=== PATIENT | female | born 1945 | race Caucasian/White ===

== ENCOUNTER 2019-12-21 01:07 | Outpatient (CLI) | payer MEDICARE, OTHER, SELFPAY ==
[2019-12-21 20:51] LABS: SARS-CoV-2 RNA PCR Negative
== END 2019-12-21 01:08 | disposition home or self-care (01) ==
LOC: ANHCOVIDDT 01:08
PROVIDERS: PCP Family Medicine; Visit Provider Plastic Surgery
DX: Z01.812 Encounter for preprocedural laboratory examination (principal); Z20.828 Contact with and (suspected) exposure to other viral communicable diseases
CPT/HCPCS: 87635; C9803; U0003

== ENCOUNTER 2019-12-23 01:48 | Day surgery (SDC) | payer MEDICARE, OTHER, SELFPAY ==
[2019-12-15 09:38] VITALS: BMI 34.0
[2019-12-23] VITALS (9 sets, daily range): BP systolic 153–224; BP diastolic 77–99; PULSE 63–644; RESP 12–20; TEMP 36.4; O2SAT 94–99
--- NOTE | 2019-12-23 07:13 | WPDHPUPDATE1 ---
History and Physical Update Update Date/Time: 12/23/19 07:13 History and Physical has been reviewed, including an updated exam of the patient. There are NO changes in the patient's condition. Risks, benefits, and alternatives have been discussed and questions answered. Patient agrees to proceed with procedure.
--- NOTE | 2019-12-23 07:14 | WPDHPUPDATE1 ---
History and Physical Update Update Date/Time: 12/23/19 07:14 History and Physical has been reviewed, including an updated exam of the patient. There are NO changes in the patient's condition. Risks, benefits, and alternatives have been discussed and questions answered. Patient agrees to proceed with procedure.
--- NOTE | 2019-12-23 12:23 | PM.OP ---
Procedure Note - Brief Procedure Note - Brief Date of procedure: 12/23/19 Pre-op diagnosis: Squamous Cell CA Right Forehead Post-op diagnosis: same Procedure performed: Excision of SCC of right forehead with FS and intermediate repair 3.0 ncm Anesthesia: local Surgeon: Deandre Ray MD Estimated blood loss (mL): 2 Drains: No Packing: No Pathology: yes Complications: No immediate complications Condition: stable Disposition: same day
[2019-12-23] MEDS: LIDO 1%/EPINEPHRINE 1:100,000 20 ML VIAL INFILTRATE (12:50)
--- NOTE | 2019-12-23 13:15 | PM.PROC ---
Procedure Note - Detailed Date of procedure: 12/23/19 Pre-op diagnosis: Squamous Cell CA Right Forehead Post-op diagnosis: same Procedure performed: 1.2 cm excision squamous cell carcinoma of the right forehead with frozen section and intermediate repair 3 cm Description of procedure: The biopsy site on the right forehead was marked as the patient waited in holding. The site was compared to a drawing. She has no other scars on her forehead. She was taken to the operating room and placed supine the operating table. A time-out was held and confirmed. The patient was prepped and draped in the usual fashion. The site was visualized and marked for the proposed excision. It was infiltrated with 1% lidocaine with epinephrine. The ballooning affect made the tumor margin more evident. The incision was made as marked and dissection was carried to the subcutaneous tissue. A suture was placed at the 12:00 o'clock position which was most superior. The specimen was sent to pathology. The pathologist reports biopsy site only no residual tumor. The wound edges were undermined 5 mm on all sides and the skin was closed with intradermal 4-0 Vicryl in a couple of sites 2 small dog ears were removed and the skin was closed with a running 5 0 nylon tolerated well She is discharged with instructions in wound care and follow-up and no prescriptions Anesthesia: local Surgeon: Deandre Ray MD Estimated blood loss (mL): 2 Drains: No Packing: No Pathology: yes Complications: No immediate complications Condition: stable Disposition: same day
== END 2019-12-23 13:42 | disposition home or self-care (01) ==
PROVIDERS: PCP Family Medicine; Visit Provider Plastic Surgery
PROC: (CPT 11642; principal; 2019-12-23 12:15)
DX: C44.329 Squamous cell carcinoma of skin of other parts of face (principal)
CPT/HCPCS: 11642; 12052; 88305; 88331; A9270

== ENCOUNTER 2020-04-24 09:42 | Emergency (ER) | payer MEDICARE, OTHER, SELFPAY ==
--- NOTE | ~2020-04-24 | NM_ITS ---
EXAMINATION: NM pulmonary perfusion EXAM DATE: 04/24/2020 14:41 INDICATION: chest pain, elevated d dimer TECHNIQUE: A perfusion lung scan was performed. The patient was injected with 5.2 mCi technetium 99 m MAA and imaged. Modified PIOPED 2 criteria used for interpretation of perfusion without ventilation study (recent chest x-ray instead for comparison). Correlation is made to chest x-ray earlier same d ate. FINDINGS: Mildly heterogeneous perfusion without segmental defect. Low probability pulmonary embolism . IMPRESSION: Low probability pulmonary embolism. Reviewed, dictated and finalized at location B. ASSEMBLER KITCHEN
--- NOTE | ~2020-04-24 | CT_ITS ---
EXAMINATION: CT abdomen pelvis wo con EXAM DATE: 04/24/2020 12:40 INDICATION: Right-sided back pain. Chest pain. Elevated d-dimer. TECHNIQUE: Spiral CT of the abdomen and pelvis was performed without contrast. Axial, coronal and sag ittal images were reviewed. The dose-length product (DLP) for this examination was 670.58 mGy-cm. T he exposure was tailored according to patient size (auto mA exposure control), and iterative reconstr uction (ASIR) was used as additional dose reduction technique. There is no prior study for compariso n. FINDINGS: There is no nephrolithiasis or hydronephrosis. The uterus is not identified and has likel y been surgically resected. The bladder is unremarkable. Small amount of right liver lobe scarring i nferiorly, capsular retraction. The liver, spleen, adrenal glands and pancreas are otherwise unremark able. There are cholecystectomy clips. There is no retroperitoneal or pelvic lymphadenopathy. The re is mild to moderate scattered arteriosclerotic disease. The appendix is not positively visualized. There is no pericecal inflammatory change to suggest appe ndicitis. The stomach and small bowel are unremarkable. There is moderate amount of right hemicolo neymar stool and gas. There is mild sigmoid colonic diverticulosis. There is no adjacent inflammatory c hange to suggest diverticulitis. No free intraperitoneal gas. Mild cardiomegaly. Left basilar sub segmental atelectasis and granuloma. 6 mm anterolisthesis L5 on S1 without spondylolysis. Advanced d isc disease L4-5 and L5-S1. There are no osteoblastic or osteolytic lesions identified. IMPRESSION: 1. No nephrolithiasis, hydronephrosis or acute intra-abdominal findings. 2. Moderate right hemicolonic stool. 3. Mild colonic diverticulosis. Reviewed, dictated and finalized at location B. TRICAL TESTER BATTERY
--- NOTE | ~2020-04-24 | XR_ITS ---
EXAMINATION: XR chest 1V portable INDICATION: Back pain TECHNIQUE: Portable AP chest at 1054 hours COMPARISON: None available FINDINGS: There is mild atelectasis of the lung bases. No pleural effusion or pneumothorax is identif ied. The heart size is normal. The visualized osseous structures are unremarkable. IMPRESSION: 1. No acute cardiopulmonary abnormality. Reviewed, dictated and finalized at location A. Y ROLLING MACHINE OPERATOR
[2020-04-24 09:48] VITALS: BP 163/73; PULSE 82; RESP 20; TEMP 36.8; O2SAT 100
[2020-04-24 10:01] LABS: Basophils Percent Auto 0.8 % (0.2-1.2); Eosinophils Absolute Auto 0.1 K/mm3 (0-0.3); Eosinophils Percent Auto 1.4 % (0-4.4); Hemoglobin 12.9 g/dL (12.0-15.0); Immature Granulocyte Absolute 0.01 K/mm3 (0.00-0.031); Immature Granulocyte Percent A 0.2 % (0-0.5); Lymphocytes Absolute Auto 1.15 K/mm3 (0.9-3.2); Lymphocytes Percent Auto 23.2 % (18.3-44.2); Mean Corpuscular HGB Conc 33.1 g/dl (32-36); Mean Corpuscular Hemoglobin 31.5 pg (26-34); Mean Corpuscular Volume 95.4 fl (80-100); Mean Platelet Volume 9.3 fl (7.4-10.4); Monocytes Absolute Auto 0.6 K/mm3 (0.1-0.6); Monocytes Percent Auto 11.7 % (2.6-8.5); Neutrophils Absolute Auto 3.1 K/mm3 (1.3-6.7); Neutrophils Percent Auto 62.7 % (45.5-73.1); Platelet Count Result 279 k/mm3 (150-375); Red Blood Count 4.09 M/mm3 (4.2-5.4); Red Cell Distribution Width 12.6 % (11.5-14.5)
[2020-04-24 10:15] LABS: Anion Gap 6 mmol/L (8-16); Blood Urea Nitrogen 10 mg/dL (7-17); Calcium 9.6 mg/dL (8.4-10.2); Carbon Dioxide 30 mmol/L (22-30); Chloride 94 mmol/L (98-107); Estimated CRCL calculation 48 ml/min; Estimated Glomerular Filt Rate > 60; Glucose 100 mg/dL (65-105); Potassium 3.7 mmol/L (3.4-5.0); Sodium 130 mmol/L (137-145)
[2020-04-24 10:22] LABS: Add Urine Microscopic? YES; Appearance Urine Clear (Clear); Bacteria Urine Trace /hpf; Bilirubin Urine Negative (Negative); Blood Urine Negative (Negative); Color Urine Amber (Yellow); Glucose Urine UA Negative (Negative); Hyaline Casts Urine 30-49 /lpf; Ketones Urine Trace mg/dL (Negative); Leukocyte Esterase Ur Negative LEU/UL (Negative); Mucus Urine Heavy /lpf; Nitrate Urine Negative (Negative); Protein Urine 1+ mg/dL (Negative); RBC Urine 0-2 /hpf (0-2); Specific Grav Ur 1.024 (1.001-1.035); Squamous Epithelial Cell Urine Rare /hpf (Few); WBC Urine 0-3 /hpf
--- NOTE | 2020-04-24 10:37 | ECG_ITS ---
Measurements Intervals Fluker Rate: 77 P: 54 ND: 164 QRS: 20 QRSD: 102 T: 42 QT: 404 QTc: 459 Interpretive Statements SINUS RHYTHM ATRIAL PREMATURE COMPLEX INCOMPLETE RIGHT BUNDLE BRANCH BLOCK BORDERLINE T WAVE ABNORMALITY- ANTERIOR LEADS BASELINE ARTIFACT- V4, V6 BORDERLINE ECG Electronically Signed On 04-24-2020 10:59:27 RELAY SHOP TESTER by Arash Paula D.O.
--- NOTE | 2020-04-24 10:45 | PC.NURSE ---
Called chem, added on Trop Baseline, TSH, and D dimer 9902
[2020-04-24 11:28] LABS: Troponin I < 0.012 ng/mL (0.000-0.034)
--- NOTE | 2020-04-24 11:30 | ED.GENADULT ---
HPI - General Adult General Chief complaint: Back Pain/Injury Stated complaint: Possible Kidney stone/ sent by PCP Time Seen by Provider: 04/24/20 10:23 Source: patient History of Present Illness HPI narrative: Patient is a 74 y/o female complaining of right back pain starting 4 days ago. She describes her pain as poking and rates it as 10/10. She states that she was seen 2 days ago by her doctor and found to have blood in urine and thought to be have a possible kidney stone. She was given Flomax. No imaging was done. She states that Flomax is not helping with her back pain. She also started to have left sided chest pain starting yesterday. Related Data Home Medications Medication Instructions Recorded Confirmed aspirin 325 mg PO DAILY 12/15/19 12/23/19 carvedilol [Coreg] 3.125 mg PO BID 12/15/19 12/23/19 duloxetine 30 mg PO QAM 12/15/19 12/23/19 levothyroxine 88 mcg PO QAM 12/15/19 12/23/19 lorazepam 1 mg PO HS 12/15/19 12/23/19 multivitamin [Multiple Vitamins] 1 tablet PO DAILY 12/15/19 12/23/19 omega 8-sbd-dvk-fish oil [Fish Oil] 1 cap PO DAILY 12/15/19 12/23/19 omeprazole 20 mg PO DAILY 12/15/19 12/23/19 rizatriptan [Maxalt] 10 mg PO ONCE PRN 12/15/19 12/15/19 Allergies Allergy/AdvReac Type Severity Reaction Status Date / Time iohexol Allergy Anaphylaxis Verified 04/24/20 12:55 [From contrast - CT, X-RAY] chicken derived AdvReac Intermediate VOMITING/CABALLERO Verified 12/23/19 11:08 codeine AdvReac Mild Headache Verified 12/23/19 11:08 midazolam AdvReac Mild Headache Verified 12/23/19 11:08 prochlorperazine AdvReac Mild Jittery Verified 12/23/19 11:08 thyme AdvReac Mild Headache Verified 12/23/19 11:08 Review of Systems Constitutional: Constitutional: Denies chills, Denies fever(s), Denies headache(s) and Denies weakness Eyes: Eyes: Denies blurry vision ENT: Denies headache(s) and Denies neck pain Cardiovascular: Cardiovascular: Reports chest pain and Denies dyspnea Respiratory: Respiratory: Denies cough and Denies dyspnea Gastrointestinal: Gastrointestinal: Denies abdominal pain, Denies diarrhea, Denies nausea and Denies vomiting Genitourinary: Genitourinary: Denies hematuria and Denies dysuria Musculoskeletal: Musculoskeletal: Reports back pain and Denies neck pain Neurologic: Denies headache(s) and Denies weakness [facility] Social History Social History Smoking status: Never smoker Alcohol intake: current Drinks per week: 4 Substance use: never Gender identity (if verbalized by the patient): Female Spiritual care concerns: No Exam Const: General: no acute distress and well developed Orientation/consciousness: oriented to person, oriented to place, oriented to time and patient oriented x3 HENMT: Head: normocephalic Ears: external ears normal General nose exam: Normal external nose present Eyes: General: appearance normal, both eyes and all related structures Conjunctivae: conjunctivae normal Neck: Neck: normal visual inspection and full ROM Chest: Chest palpation & inspection: normal inspection of the chest and no tenderness Resp: Effort & Inspection: normal respiratory effort Auscultation: clear to auscultation bilaterally Cardio: Rate: regular rate Rhythm: regular rhythm GI: GI Palp: No abdominal tenderness and Yes Soft to palpation Skin: General skin exam: normal color and turgor normal Neuro: General: oriented to person, oriented to place, oriented to time and patient oriented x3 Cognition (Neuro): normal cognition Extrem: General: normal to inspection, full ROM and no pedal edema Psych: Appearance: grossly normal Mental Status: mental status grossly normal Affect: normal affect Course Vital Signs Vital signs: Vital Signs Temperature 36.8 C 04/24/20 09:48 Pulse Rate 82 04/24/20 09:48 Respiratory Rate 20 04/24/20 09:48 Blood Pressure 163/73 H 04/24/20 09:48 Pulse Oximetry 100 04/24/20 09:48
--- NOTE | 2020-04-24 11:30 | PC.NURSE ---
CALLED LAB. NOTIFIED OF ADD ON D-DIMER
[2020-04-24 11:51] LABS: D Dimer 0.61 ug/mL (<0.48)
[2020-04-24 12:49] VITALS: BP 152/87; PULSE 80; RESP 20; O2SAT 100
[2020-04-24] MEDS: KETOROLAC 15 MG/ML VIAL (*BKC) IV PUSH (13:11)
[2020-04-24 13:48] LABS: Troponin I < 0.012 ng/mL (0.000-0.034)
[2020-04-24 14:00] VITALS: BP 156/80; PULSE 78; RESP 20; O2SAT 97
[2020-04-24] MEDS: CYCLOBENZAPRINE HCL 10 MG TABLET PO (15:07)
[2020-04-24 16:55] VITALS: BP 132/68; PULSE 80; RESP 18; O2SAT 99
== END 2020-04-24 16:57 | disposition home or self-care (01) ==
PROVIDERS: Emergency Provider Emergency Medicine; PCP Family Medicine
DX: M54.5 Low back pain (principal); R07.9 Chest pain, unspecified; Z79.82 Long term (current) use of aspirin; Z79.899 Other long term (current) drug therapy; I49.1 Atrial premature depolarization; I45.10 Unspecified right bundle-branch block; R94.31 Abnormal electrocardiogram [ECG] [EKG]
CPT/HCPCS: 36415; 71045; 74176; 78580; 80048; 81001; 84443; 84484; 85025; 85380; 93005; 96374; 99284; A9270; A9540; J1885

== ENCOUNTER → 2023-06-16 12:02 | Outpatient (REF) | payer MEDICARE, OTHER, SELFPAY | LOC: ANHLAB 12:02 | PROVIDERS: PCP Family Medicine; Visit Provider Physician Assistant Surgical | DX: C44.622 Squamous cell carcinoma of skin of right upper limb, including shoulder (principal) | CPT/HCPCS: 88305 ==

== ENCOUNTER → 2024-07-20 14:38 | Outpatient (REF) | payer MEDICARE, OTHER, SELFPAY ==
--- NOTE | 2024-07-20 14:38 | S_PTH ---
PATIENT: Porsha Bean LOC: [facility] U#:[id number] AGE/SX: 79/F ROOM: RE07/20/[address]: Nazanin Perez PA-C : 1945 BED: DIS: SPEC #: [id number] RECD: 07/21/24 06:57 STATUS: NIA SERRATO #: [id number] ELBERT: 07/20/24 14:[address]: Nazanin Perez DEPT: [facility] Surgical RECD BY: Radha Vick ENTERED: 07/21/24 06:57 SP TYPE: Surgical OTHR DR: Aliza Aviles MD Tissues: A - Skin Procedures: Hematoxylin and Eosin Stain Gross and Microscopic Level 4
--- OUTSIDE RECORDS SUMMARY | 2024-07-20 14:41 | XMS_ITS | Encounter Summary ---
Author Organization [facility] Address [address] [place] [address] Phone Care Team Providers Care Religious Education Director Name Role Phone Aliza Aviles MD Primary Care Provider Referral, Self Unavailable Unavailable William Naranjo MD Unavailable [phone] Encounter Details Date Type Department Care Team (Late st Contact Info) Description 06/28/2024 Results Follow-Up [facility] [address] 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 I also want to take a look at the esophagram if she can bring the images at the time of her Upper endoscopy. Thanks, C documented in this encounter Plan of Treatment Not on file documented as of this encounter Visit Diagnoses Not on filedocumented in this encounter Care Teams Religious Education Director Relationship Specialty Start Date End Date Aliza Aviles MD [address] [place] [address] PCP - General Family Medicine 05/22/20 Referral, Self 05/22/20 William Naranjo MD Consulting Physician Medical Oncology 05/22/20 documented as of this encounter
--- OUTSIDE RECORDS SUMMARY | 2024-07-20 14:41 | XMS_ITS | Encounter Summary ---
Author Organization [facility] Address [address] [place] [address] Phone Care Team Providers Care Oriental Rug Stretcher Name Role Phone Aliza Aviles MD Primary Care Provider Referral, Self Unavailable Unavailable William Naranjo MD Unavailable [phone] Encounter Details Date Type Department Care Team (Late st Contact Info) Description 12/31/2023 Orders Only [facility] Scanning, Provider Social History Tobacco Use Types Packs/Day Years Used Date Smoking Tobacco: Never Smokeless Tobacco: Never Comments Unknown Sex and Gender Information Value Date Recorded Sex Assigned at Not on file Legal Sex Female 10:34 PM AIR MARSHAL Gender Identity Not on file Sexual Orientation Not on file documented as of this encounter Plan of Treatment Not on file documented as of this encounter Procedures Procedure Name Priority Date/Time Associated Diagnosis Comments GI - RESULT 12/31/2023 documented in this encounter Results * GI - RESULT (12/31/2023) Anatomical Region Laterality Modality Other us Provider Scanning Final Result documented in this encounter Visit Diagnoses Not on filedocumented in this encounter Care Teams Oriental Rug Stretcher Relationship Specialty Start Date End Date Aliza Aviles MD [address] [place], [place] [id number] PCP - General Family Medicine 05/22/20 Referral, Self 05/22/20 William Naranjo MD Consulting Physician Medical Oncology 05/22/20 documented as of this encounter
--- OUTSIDE RECORDS SUMMARY | 2024-07-20 14:41 | XMS_ITS | Clinical Summary ---
Author Organization [facility] [place] Address [address] [place] [address] Phone Care Team Providers Care Gore Cutter Name Role Phone Aliza Aviles MD Primary Care Provider Allergies Active Allergy Reactions Criticality Noted Date Comments Codeine Headache Low 06/02/2009 Epinephrine Rash,Nausea and Vomiting Low 06/02/2009 Hydralazine Other (See Comments) 06/15/2013 hyperness Hydromorphone (Bulk) Nausea and Vomiting Low 2011 Loperamide Itching Low 06/02/2009 Midazolam Rash,Nausea and Vomiting Low 06/02/2009 Morphine Other (See Comments) 06/15/2013 hyperness Nebivolol Nausea and Vomiting Low 06/02/2009 Nitroglycerin Other (See Comments) 10/06/2012 unknown Ondansetron Hives,Other (See Comments) High 02/20/2023 Swelling and redness Prochlorperazine Nausea and Vomiting,Other (See Comments) Low 06/02/2009 Promethazine Other (See Comments) 10/02/2011 Makes her nervous Unclassified Drug Itching Low 06/02/2009 Medications RIZATRIPTAN BENZOATE (MAXALT ORAL) Take by mouth. prn. Active multivitamin (DAILY-JUDY) Oral tablet Take 1 Tab by mouth daily. Active OMEGA-3 FATTY ACIDS (FISH OIL ORAL) Take 1,200 mg by mouth. Active omeprazole (PRILOSEC) 20 mg Capsule, Delayed Release(E.C.) Take 20 mg by mouth daily. Active levothyroxine 100 mcg tabletIndicatio ns:Encounter for screening mammogram for high-risk patient Take 100 mcg by mouth daily diamond assorter. Active LORazepam (ATIVAN) 1 mg tabletIndicatio ns:Encounter for screening mammogram for high-risk patient Take 1 mg by mouth every 6 hours as needed for Anxiety. Active DULoxetine 30 mg capsule,delayed release Take 30 mg by mouth daily. Active spironolactone (ALDACTONE) 25 mg tablet Take 12.5 mg by mouth daily. 07/31/2020 Active losartan 25 mg tablet Take 25 mg by mouth daily. 03/24/2020 Active carvediloL (COREG) 3.125 mg tablet Take 3.125 mg by mouth 2 times daily. 09/01/2020 Active topiramate (TOPAMAX) 25 mg tablet Take 25 mg by mouth 2 times daily. 10/03/2020 Active LORazepam (ATIVAN) 1 mg tablet Take 1 mg by mouth. Active rizatriptan (MAXALT) 10 mg Tablet Take by mouth. Active levothyroxine 88 mcg tablet Take 88 mcg by mouth daily. 04/22/2020 Active oxyCODONE-aceta minophen (PERCOCET) 5-325 mg tablet TAKE 1 TABLET BY MOUTH 3 TIMES A DAY NEEDED FOR PAIN 10/05/2020 Active furosemide (LASIX) 20 mg tablet TAKE 1 BY MOUTH DAILY MAY TAKE ADDITION 20MG TAB IF WEIGHT UP 3# 01/22/2022 Active Xarelto 15 mg Tablet TAKE 1 TABLET BY MOUTH EVERY DAY WITH SUPPER 02/20/2022 Active topiramate (TOPAMAX) 25 mg tablet Take 25 mg by mouth 2 times daily as needed. Active Zetia 10 mg tablet 1 Oral every day; Duration: 0 10/17/2022 Active rizatriptan (Maxalt) 10 mg Tablet 1 tablet Orally Once a day As needed 1 tablet once, may repeat at 2 hour intervals. 03/16/2024 Active Active Problems Patient Care Coordination No te Formatting of this note migh t be different from the original. Primary Care: Cj Armstrong MD Referring Provider: Cj Armstrong MD [address] [place] [address] [place] [address] Other: Problem Noted Date Diagnosed Date Breast lump 03/31/2017 Encounter for screening mammogram for high-risk patient 06/06/2015 Tachycardia 10/06/2012 HTN (hypertension) 06/08/2010 Diffuse cystic mastopathy 06/08/2010 Family history of breast cancer in mother 2009 Overview (06/02/2009): Elvira 3% and 11.7% Assessment & Plan (06/02/2009 2:28 PM CDT): Saw once 2 yrs ago for obesity. [place] Stopped estrogen 2 years ago Mammiogram today negtative extremely tender right breast -- primrose oil Discussed Evista since Mom had breast cancer at 70y- she doesn't want it Depression 06/02/2009 Unspecified hypothyroidism 06/02/2009 GERD (gastroesophageal reflux disease) Arthritis Migraines Obesity Hypercholesteremia S/P VISH (total abdominal hysterectomy) Celiac disease Rheumatoid arthritis(714.0) Resolved Problems Problem Noted Date Diagnosed Date Resolved Date HTN (hypertension) 3 Thyroid disease 06/02/2009 Psychiatric disorder 010 Overview (06/02/2009): depression Encounters Date Type Department Care Team Description 05/05/2024 External Device Data ST[facility] ABSTRACTION Provider, Abstract 04/24/2024 External Device Data [facility] ABSTRACTION Provider, Abstract 04/23/2024 External Device Data [facility] ABSTRACTION Provider, Abstract from Last 3 Months Family History Medical History Relation Name Comments Cancer Brother kidney Breast Cancer Mother dx age 70 Ovarian Cancer Neg Hx Relation Name Status Comments Brother Alive Mother Social History Tobacco Use Types Packs/Day Years Used Date Smoking Tobacco: Never Smokeless Tobacco: Never Tobacco Cessation:Counseling Given: Not Answered Alcohol Use Standard Drinks/Week Comments Yes 0 (1 standard drink = 0.6 oz pur e alcohol) Feeling Safe Answer Date Recorded Fear of Current or Ex-Partner Not on file Emotionally Abused Not on file 03/26/2023 Within the last year, have y ou been kicked, hit, slapped, or otherwise physically hurt by your partner or ex-partner? No 03/26/2023 Sexually Abused Not on file 03/26/2023 Feeling Safe Answer Date Recorded Do you worry about feeling s afe and happy with the people in your life? 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 Not on file Not on file Not on file Not on file Not on file Not on file Not on file Last Filed Vital Signs Vital Sign Reading Time Taken Comments Blood Pressure 128/84 04/02/2024 12:54 PM DISPLAY MAKER Pulse 87 03/08/2022 11:31 AM DISPLAY MAKER Temperature 36.5 C (97.7 F) 09/01/2019 11:48 AM CDT Respiratory Rate 14 06/02/2009 1:43 PM CDT Oxygen Saturation 96% 03/08/2022 11:31 AM DISPLAY MAKER Inhaled Oxygen Concentration - - Weight 70.8 kg (156 lb) 04/02/2024 12:54 PM DISPLAY MAKER Height 152.4 cm (5') 04/02/2024 12:54 PM DISPLAY MAKER Body Mass Index 30.47 04/02/2024 12:54 PM DISPLAY MAKER Plan of Treatment Upcoming Encounters Date Type Department Care Team (Late st Contact Info) Description 04/04/2025 12:00 PM DISPLAY MAKER Appointment [facility] [address] [place] [address] Svetlana Kaur, GERONIMO [address] [place] [address] 04/04/2025 12:45 PM DISPLAY MAKER Office Visit [facility] [address] [place] [place] [address] Svetlana Kaur, CALL CENTER TEAM LEADER [id number] [facility] [address] [place] [address] Health Maintenance Due Date Last Done Comments DTAP/TDAP/TD VACCINES (1 - Tdap) 08/19/1962 RSV VACCINE (60+ or ) (1 - 1-dose 75+ series) 08/19/2018 INFLUENZA VACCINE (#1) 2023 0, 12/11/2018, 12/15/2017, Additional history exists COVID-19 Vaccine (2023-2 5 season) 2023 04/11/2020, 03/14/2020 OSTEOPOROSIS SCREENING 08/30/2027 , 08/29/2022, 01/05/2018, Additional history exists PNEUMOCOCCAL VACCINE 50+ YEARS Completed 01/01/2016 , 12/25/2012 ZOSTER VACCINE Completed 08/18/2018, 04/18, 02/18/2008 Insurance [facility] MEDICARE RAILROAD Care Teams Gore Cutter Relationship Specialty Start Date End Date Aliza Aviles MD [address] [place] [address] PCP - General Family Practice 08/05/18
--- OUTSIDE RECORDS SUMMARY | 2024-07-20 14:41 | XMS_ITS | Referral Summary ---
Author Organization [facility] Address [address] [place] [address] Care Team Providers Care Oversize Load Pilot Escort Name Role Phone Aliza Aviles MD Primary Care Provider Referral, Self Unavailable Unavailable William Naranjo MD Unavailable [phone] Encounters Date Type Department Care Team Description 07/09/2024 Results Follow-Up [facility] [address] [facility] 12th [place] [address] [place] [address] Yolette Jenkins MD Surgical pathology 07/08/2024 9:04 AM CDT Anesthesia Event [facility] [address] [place] [phone] Deandre Pat MD 07/08/2024 9:00 AM CDT - 07/08/2024 9:30 AM CDT Surgery [facility] [address] [place] [phone] Yolette Jenkins MD ESOPHAGOGASTRODUODENOSCOPY ESOPHAGEAL GUIDE WIRE 07/08/2024 7:37 AM CDT - 07/08/2024 10:24 AM CDT Hospital Encounter [facility] [address] [place] [phone] Yolette Jenkins MD Gastroesophageal reflux disease, unspecified whether esophagitis present; Celiac disease Discharge Disposition: Discharge to home or self care 07/01/2024 Telephone [facility] [address] [facility] 12th [place] [address] [place] [address] Rupal Henderson LPN 07/01/2024 8:14 AM CDT - 07/01/2024 11:59 PM CDT Hospital Encounter [facility] ([facility]) [address] [place] [address] Discharge Disposition: Discharge to home or self care 07/01/2024 8:13 AM CDT - 07/01/2024 11:59 PM CDT Hospital Encounter [facility] ([facility]) [address] [place] [address] Discharge Disposition: Discharge to home or self care 07/01/2024 8:11 AM CDT - 07/01/2024 11:59 PM CDT Hospital Encounter [facility] ([facility]) [address] [place] [address] Discharge Disposition: Discharge to home or self care 06/30/2024 Telephone [facility] [address] [facility] [address]th [place] [address] [place] [address] Rupal Henderson LPN Cardiac Clearance + Xarelto Hold 06/28/2024 Results Follow-Up [facility] [address] [facility] [address]th [place] [address] [place] [address] Yolette Jenkins MD High Resolution Esophageal Manometric Study - 06/21/2024 1:20 PM CDT - 06/21/2024 11:59 PM CDT Hospital Encounter [facility] [address] [place] [phone] Esophageal dysmotility; Esophageal dysphagia Discharge Disposition: Discharge to home or self care 06/17/2024 Telephone [facility] [address] [place] [phone] Rae Gilmore RN 06/17/2024 Telephone [facility] [address] [place] [phone] Rae Gilmore RN 06/17/2024 Orders Only [facility] [address] [place] [address] Medical [address] [place] [phone] Yazmin Martínez LPN Esophageal dysmotility (Primary Dx); Esophageal dysphagia 06/09/2024 Telephone [facility] [address] [place] [address] Medical [address] [place] [phone] Yazmin Martínez LPN Esophageal Manometry 06/09/2024 Orders Only [facility] [address] [place] [address] Medical [address] [place] [address] Yazmin Martínez LPN Esophageal dysmotility (Primary Dx); Esophageal dysphagia; Esophageal diverticulum 06/02/2024 1:15 PM CDT Office Visit [facility] [address] [facility] [address] [place] [address] [place] [address] Yolette Jenkins MD Esophageal dysmotility (Primary Dx); Esophageal dysphagia; Esophageal diverticulum from Last 3 Months Allergies Active Allergy Reactions Criticality Noted Date Comments Atorvastatin Headache Low 11/30/2015 Chicken Headache Low 05/25/2020 Codeine Iodinated Contrast Media Shortness of breath,Itching High 07/18/2014 Noted at [facility] Epinephrine Flecainide Other (See comments) Low 09/29/2017 hypertension Hydralazine Other (See comments) Low 06/15/2013 hyperness hypertension Hydromorphone Loperamide Rash Medium 05/25/2020 Reaction: Rash, Iodine Itching Low 11/30/2015 Metoclopramide Other (See comments) Low 11/30/2015 hypertension Midazolam Monosodium Glutamate Headache Low 11/30/2015 Morphine Other (See comments),Unknown Low 06/15/2013 hyperness Hypertension/inso mnia Nebivolol Headache Low 05/25/2020 Nitroglycerin Headache Low 05/25/2020 Prochlorperazine Promethazine Sulfa (Sulfonamide Antibiotics) Rash Medium 11/30/2015 Thyme Headache Low 11/30/2015 Medications multivitamin-Ca -iron-minerals tabletIndicatio ns:Hip pain, chronic, right Take 1 tablet by mouth daily 08/05/2013 Active rizatriptan (Maxalt) 10 mg tabletIndicatio ns:Hip pain, chronic, right Take by mouth as needed Active DULoxetine DR (CYMBALTA) 30 mg capsuleIndicati ons:Hip pain, chronic, right Take 30 mg by mouth daily 11/13/2017 Active levothyroxine (SYNTHROID) 88 mcg tabletIndicatio ns:Hip pain, chronic, right Take 1 tablet (88 mcg total) by mouth daily 04/22/2020 Active LORazepam (ATIVAN) 1 mg tabletIndicatio ns:Hip pain, chronic, right TAKE 1/2 TO 1 TABLET BY MOUTH AT BEDTIME NEEDED 05/19/2020 Active omeprazole (PriLOSEC) 20 mg capsuleIndicati ons:Hip pain, chronic, right Take 1 capsule (20 mg total) by mouth daily Active topiramate (TOPAMAX) 25 mg tablet Take 1 tablet (25 mg total) by mouth 2 (two) times a day 10/03/2020 Active Zetia 10 mg tablet Take 1 tablet (10 mg total) by mouth daily 10/17/2022 Active potassium chloride ER 10 mEq CR tablet Take 2 tablet/capsu le (20 mEq total) by mouth 2 (two) times a day 04/12/2024 Active Xarelto 15 mg tablet Take 1 tablet (15 mg total) by mouth every evening Active torsemide (DEMADEX) 20 mg tablet Take 1 tablet (20 mg total) by mouth daily 12/15/[address] (CYMBALTA) 60 mg capsule Take 1 capsule (60 mg total) by mouth daily 04/12/2024 Active fluconazole (DIFLUCAN) 200 mg tablet Take 1 tablet (200 mg total) by mouth daily for 21 days 21 tablet 07/09/2024 5 Active Active Problems Problem Noted Date Diagnosed Date Dyslipidemia 10/17/2020 GERD (gastroesophageal reflux disease) Hypercholesteremia 10/17/2020 SOB (shortness of breath) 10/17/2020 Hip pain, chronic, right 05/26/2020 Localized edema 07/05/2019 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 0 07/18/2017 Arthritis 07/17/2017 Rheumatoid arthritis 07/17/2017 Celiac disease 07/17/2017 Migraines 07/17/2017 Obesity 07/17/2017 S/P VISH (total abdominal hysterectomy) 8 Breast lump 03/31/2017 Ascending aortic aneurysm 12/04/2015 Near syncope 12/04/2015 HLD (hyperlipidemia) 12/04/2015 Nonrheumatic aortic valve insufficiency 12/04/19 16 PAF (paroxysmal atrial fibrillation) 12/04/2015 Overview (10/17/2020): S/p pulmonary vein ablation Encounter for screening mammogram for high-risk patient 06/06/2015 Cardiac arrhythmia 11/17/2014 Overview (10/17/2020): Date Onset: 11/17/2014 Postherpetic trigeminal neuralgia 04/05/2014 CAD (coronary artery disease) 12/16/2013 Overview (10/17/2020): Date Onset: 12/16/2013 Date Onset: 11/17/2014 Insomnia 12/16/2013 Overview (10/17/2020): Date Onset: 12/16/2013 Arthralgia of hand 04/05/2013 Tachycardia 10/06/2012 Arthralgia of wrist 01/24/2012 Postmenopausal atrophic vaginitis 06/20/2010 Anxiety disorder 06/19/2010 Overview (10/17/2020): Date Onset: 11/17/2014 Intractable migraine without aura 06/19/2010 Diffuse cystic mastopathy 06/08/2010 HTN (hypertension) 06/08/2010 Depression 06/02/2009 Family history of breast cancer in mother 2009 Overview (10/17/2020): Elvira 3% and 11.7% Last Assessment & Plan: Saw once 2 yrs ago for obesity. [place] Stopped estrogen 2 years ago Mammiogram today negtative extremely tender right breast -- primrose oil Discussed Evista since Mom had breast cancer at 70y- she doesn't want it Overview: Elvira 3% and 11.7% Last Assessment & Plan: Saw once 2 yrs ago for obesity. [place] [address] Stopped estrogen 2 years ago Mammiogram today negtative extremely tender right breast -- primrose oil Discussed Evista since Mom had breast cancer at 70y- she doesn't want it Hypothyroidism 06/02/2009 Immunizations Immunization Administration Dates Next Due Influenza, Quadrivalent, Hig h Dose, Preservative Free, Intrr 12/14/2019 Influenza, Trivalent, High D ose, Split, Preservative Free, Intramuscular 12/11/2018,12/15/2017,12/25/2016,12/31 Moderna SARS-CoV-2 Monovalen t Vaccination (12+ YRS) 04/11/2020,03/14/2020 Pneumococcal Conjugate PCV 13 01/01/2016 Pneumococcal Polysaccharide PPV23 12/25/2012 ZOSTER LIVE 02/18/2008 ZOSTER Recombinant 08/18/2018,05/14/2018 Social History Tobacco Use Types Packs/Day Years Used Date Smoking Tobacco: Never Smokeless Tobacco: Never Tobacco Cessation:Counseling Given: Not Answered AUDIT-C Answer Date Recorded Q1: How often do you have a drink containing alc ohol? Monthly or less 07/08/2024 Q2: How many drinks containi ng alcohol do you have on a typical day when you are drinking? 1 or 2 07/08/2024 Q3: How often do you have si x or more drinks on one occasion? Never 07/08/2024 Personal Safety Answer Date Recorded Have you ever been in or are you currently in a harmful physical or emotional relationship or is someone making you feel afraid or unsafe? 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[employer] Gender Identity Not on file Sexual Orientation Not on file Last Filed Vital Signs Vital Sign Reading Time Taken Comments Blood Pressure 168/87 07/08/2024 10:00 AM CDT Pulse 56 07/08/2024 10:00 AM CDT Temperature 36.7 C (98 F) 07/08/2024 8:16 AM CDT Respiratory Rate 24 07/08/2024 10:00 AM CDT Oxygen Saturation 100% 07/08/2024 10:00 AM CDT Inhaled Oxygen Concentration - - Weight 71.2 kg (157 lb) 07/08/2024 8:16 AM CDT Height 147.3 cm (4' 10) 07/08/2024 8:16 AM CDT Body Mass Index 32.81 07/08/2024 8:16 AM CDT Plan of Treatment Not on file Medical Devices Implanted Type Area Supervisor Extrusion Device Identifier Shelf Expiration Date Model / Serial / Lot Pacemaker Micra Pacemaker Chest Wall [employer] [id number] / / Procedures Procedure Name Priority Date/Time Associated Diagnosis Comments SURGICAL PATHOLOGY Routine 07/08/2024 9:13 AM CDT Gastroesophageal reflux disease, unspecified whether esophagitis present Celiac disease ENDO ADD ON ESOPHAGOGASTRODUODENOSCOPY BIOPSY 07/08/2024 9:05 AM CDT Gastroesophageal reflux disease, unspecified whether esophagitis present Celiac disease ESOPHAGOGASTRODUODENOSCOPY ESOPHAGEAL GUIDE WIRE 07/08/2024 9:05 AM CDT Gastroesophageal reflux disease, unspecified whether esophagitis present Celiac disease EGD 07/08/2024 7:50 AM CDT XR TRANSFER OF OUTSIDE FILMS Routine 8:14 AM CDT XR TRANSFER OF OUTSIDE FILMS Routine 8:13 AM CDT XR TRANSFER OF OUTSIDE FILMS Routine 8:11 AM CDT HIGH RESOLUTION ESOPHAGEAL MANOMETRIC STUDY Routine 06/28/2024 6:56 AM CDT Esophageal dysmotility Esophageal dysphagia from Last 3 Months Results * Surgical pathology (07/08/2024 9:13 AM CDT) Tissue (Gastric/Stomach biopsy) 07/08/2024 9:13 AM CDT Tissue specimen (specimen) (Gastric/Stomach biopsy) 07/08/2024 9:15 AM CDT Tissue specimen (specimen) (Esophageal biopsy) 07/08/2024 9:18 AM CDT Narrative PATHOLOGY [facility] - 07/09/2024 1:29 PM CDT [address] [address] Tele: Charisma Painting MD - Shop Coordinator Note to Patients: This report may contain a detailed description of human tissue sent by a health care provider to the laboratory for pathologic evaluation. The content of this report is essential for diagnosis and may provide important critical findings. This information may be unfamiliar to patients to review without a medical professional present. It is advised that the patient review this report in the presence of a health care provider who can answer questions and explain the details. SURGICAL PATHOLOGY REPORT Patient Name: JULIANNE GILBERT Address: [address] [place] [address] Gender: F : 1945 (Age: 78) Service: Gastro Location: [facility], Hospital #: [id number] Patient Type[place] [facility] [place] Taken: 07/08/2024 Received 07/08/2024 Reported: 07/09/2024 Physician(s): Reymundo Herron M.D. DIAGNOSIS: Stomach, polyp biopsy: - Fundic gland polyps and hyperplastic polyp; negative for dysplasia or malignancy - Chronic inflammation, mild - No Helicobacter pylori detected Stomach, mucosal biopsy: - Chronic gastritis, mild - No Helicobacter pylori detected - Negative for intestinal metaplasia or malignancy Tissue submitted as white plaque esophageal biopsy rule out Pascale: - Pascale esophagitis [facility]/07/09/2024 13:29 Examining Pathologist: Alex Barraza M.D. Report Reviewed and Electronically Signed By Alex Barraza M.D. SPECIMEN TYPE: A: GASTRIC POLYP BX B: GASTRIC BX C: WHITE PLAQUE ESOPHAGEAL BX R/O PASCALE CLINICAL IMPRESSION AND HISTORY: Dysphagia, abnormal upper GI series, chronic cough. Findings include esophageal plaques suspicious for candidiasis, benign-appearing esophageal stenosis, multiple gastric polyps, erythematous mucosa in the stomach, normal examined duodenum. GROSS DESCRIPTION: The tissue is received in three containers of formalin all labeled with the patient's name JULIANNE GILBERT. A. The first container is additionally labeled gastric polyp biopsy and contains two tissue fragments measuring 0.6 x 0.2 x 0.1 cm in aggregate. Due to the color and size of the specimen, eosin is used. The specimen is filtered and submitted entirely in cassette A1. B. The second container is additionally labeled gastric biopsy and contains multiple tissue fragments measuring 1.1 x 0.2 x 0.1 cm in aggregate. Due to the color and size of the specimen, eosin is used. The specimen is filtered and submitted entirely in cassette B1. C. The third container is additionally labeled white plaque esophageal biopsy rule out Pascale and contains a 0.6 x 0.3 x 0.1 cm tissue fragment. Due to the color and size of the specimen, eosin is used. The specimen is filtered and submitted entirely in cassette C1. [facility]/07/08/2024 13:08 ,[place] MICROSCOPIC DESCRIPTION: Sections of the gastric polyp biopsy show polypoid gastric mucosal fragments with fundic gland polyp type features. There is increased chronic inflammation some areas of lamina propria. No intestinal metaplasia, dysplasia, or malignant features are evident. A few potential bacteria seen along the mucosal surface therefore an H pylori IHC stain is performed; it is negative with good control. One fragment has more hyperplastic features. Sections of the gastric biopsy fragments of gastric mucosa with areas of mild increased chronic inflammatory cells in the lamina propria. No intestinal metaplasia or malignant features are evident. There is some mild foveolar hyperplasia. A few potential bacteria seen therefore an H pylori IHC stain is performed; it is negative with good control. Sections of the white plaque esophageal biopsy rule out Pascale show squamous mucosa with areas of mild elongation of vascular papillae and mildly increased intraepithelial lymphocytes. There is some separation of surface squamous epithelial cells. To evaluate for subtle fungal forms a GMS stain is performed and shows a few superficial infiltrative fungal forms. Clerical Data Follows A; 00539, 48402 B; 33177, 68002 C; 05617, 02469 REPORT IMAGES AND/OR SCANNED DOCUMENTS ONLY VIEWABLE IN PDF FORMAT The immunohistochemical test(s) cited in this report, if any, was developed and its performance characteristics determined by [facility]. It has not been cleared or approved by the U.S. Food and Drug Administration. The FDA has determined that such clearance or approval is not necessary. This test is used for clinical purposes. It should not be regarded as investigational or for research. [facility] is certified under the Clinical Laboratory Improvement Amendments of 1988 (CLIA) as qualified to perform high complexity testing. Immunostains were performed on formalin-fixed paraffin embedded tissue using a polymer diaminobenzidine chromogen detection system. Antibodies used may include clone SP1 (rabbit monoclonal, estrogen receptor), clone 1E2 (rabbit monoclonal progesterone receptor), Ki-67 (rabbit monoclonal, 30-9), CD117 (rabbit polyclonal, c-kit), and anti-Her-2/keisha (4B5) (rabbit monoclonal primary antibody). In the event that immunohistochemistry or special stains have been performed, attending physician has confirmed appropriateness of controls. Frozen section, operating room consultation, gross examination and dissection, and case sign out may have been performed in part or completely in the following laboratories: [facility], [address] [place] [address], [address] [place] [address]. Yolette Jenkins MD LAB PATHOLOGY ORDERABLES Final Result PATHOLOGY [facility] Laboratory Receiving [address] [place] [address] * EGD (07/08/2024 7:50 AM CDT) Anatomical Region Laterality Modality Other Narrative Procedure Note Yolette Jenkins MD - 07/08/2024 7:50 AM CDT ENDOSCOPY LAB Patient Name: Julianne Gilbert Procedure Date: 07/08/2024 7:50 AM Admit Type: Outpatient Room: [facility] Date of : 1945 Instrument Name: [id number] Gender: Female Note Status: Finalized Procedure: Upper GI endoscopy Indications: Dysphagia, Abnormal UGI series, Chronic cough Providers: Yolette Jenkins M.D. Referring MD: Aliza Aviles MD Medicines: Monitored Anesthesia Care Complications: No immediate complications. Estimated Blood Loss: Estimated blood loss was minimal. Procedure: Pre-Anesthesia Assessment: - Immediately prior to administration ofmedications, the patient was re-assessed for adequacy to receive sedatives. The benefits, risks, and alternatives to theprocedure and sedation were discussed and informed consentwas obtained. The scope was passed under direct vision. The Endoscope was introduced through the mouth, and advanced to the third part of duodenum. The upperGI endoscopy was accomplished without difficulty. The patient tolerated the procedure well. Findings: Esophagogastric landmarks were identified: the Z-line was found at 39 cm, the gastroesophageal junction was found at 39 cm and the site of hiatal narrowing was found at 39 cm from the incisors. Localized, white plaques were found in the mid esophagus. Biopsieswere taken with a cold forceps for histology. Estimated blood loss was minimal. No diverticula were seen. Minimal resistance was found 39 cm from the incisors at the Gejunction. A guide wire was placed, then the scope was withdrawn. Using the wireas a guide, dilation with Savary 17 mm dilator was performed to 17 mm. Multiple 5 to 10 mm sessile polyps with no stigmata of recentbleeding were found in the gastric fundus. Biopsies were taken with a cold forceps for histology. These looked like benign fundic gland polyps. Estimated blood loss was minimal. Diffuse mildly erythematous mucosa without bleeding was found in the entire examined stomach. Biopsies were taken with a cold forceps for histology. Estimated blood loss was minimal. The examined duodenum was normal. The cardia and gastric fundus were normal on retroflexion. Impression: - Esophageal plaques were found, suspicious for candidiasis. Biopsied. - Benign-appearing esophageal stenosis. Dilated. - Multiple gastric polyps. Biopsied. - Erythematous mucosa in the stomach. Biopsied. - Normal examined duodenum. Recommendation: - Patient has a contact number available for emergencies. The signs and symptoms of potential delayed complications were discussed with thepatient. Return to normal activities tomorrow. Written discharge instructions were provided to thepatient. - Resume previous diet. - Continue present medications. - Await pathology results. Pending results start fluconazole or other antifungal if any drug interactions. - Return to my office as previously scheduled. Attending Participation: I personally performed the entire procedure. Electronically signed by Yolette Jenkins MD Yolette Jenkins M.D. 07/08/2024 9:29:07 AM This document was signed electronically. Number of Addenda: 0 Note Initiated On: 07/08/2024 7:50 AM us Yolette Jenkins MD ENDOSCOPY PROCEDURES Sabiha l Result * XR Outside Reference (07/01/2024 8:14 AM CDT) Impressions [facility] - 07/01/2024 8:14 AM CDT These images are for Reference purposes only and have not been reviewed by [facility]. There will be no report generated by a [facility] Radiologist. Narrative [facility] - 07/01/2024 8:14 AM CDT EXAMINATION: Images For Reference Purposes Only Yolette Jenkins MD IMG XR PROCEDURES Final R esult Performing Organization Address [facility] de Phone Number [email or web address] * XR Outside Reference (07/01/2024 8:13 AM CDT) Impressions [facility] - 07/01/2024 8:13 AM CDT These images are for Reference purposes only and have not been reviewed by [facility]. There will be no report generated by a [facility] Radiologist. Narrative [facility] - 07/01/2024 8:13 AM CDT EXAMINATION: Images For Reference Purposes Only Yolette Jenkins MD IMG XR PROCEDURES Final R esult Performing Organization Address [facility] de Phone Number [email or web address] * XR Outside Reference (07/01/2024 8:11 AM CDT) Impressions [facility] - 07/01/2024 8:11 AM CDT These images are for Reference purposes only and have not been reviewed by [facility]. There will be no report generated by a [facility] Radiologist. Narrative [facility] - 07/01/2024 8:11 AM CDT EXAMINATION: Images For Reference Purposes Only Yolette Jenkins MD IMG XR PROCEDURES Final R esult Performing Organization Address [facility] de Phone Number [email or web address] * High Resolution Esophageal Manometric Study - (06/28/2024 6:56 AM CDT) Anatomical Region Laterality Modality Other us Yolette Jenkins MD GI LAB PROCEDURE ORDERABL ES Final Result from Last 3 Months Insurance MEDICARE RAILROAD MEDICARE RA[place]ROAD [facility] [place] [facility] Advance Directives For more information, please contact: [phone] * Full Code (Latest Code Status on File) Date Activated Date Inactivated Comments 07/08/2024 8:02 AM 07/08/2024 2:24 PM Care Teams Oversize Load Pilot Escort Relationship Specialty Start Date End Date Aliza Aviles MD [address] [place] [address] PCP - General Family Medicine 05/22/20 Referral, Self 05/22/20 William Naranjo MD Consulting Physician Medical Oncology 05/22/20
--- OUTSIDE RECORDS SUMMARY | 2024-07-20 14:41 | XMS_ITS | Clinical Summary ---
Author Organization [facility] Address [facility] [place] [address] Care Team Providers Care Tree Chipper Name Role Phone Aliza Aviles MD Primary Care Provider Referral, Self Unavailable Unavailable William Naranjo MD Unavailable [phone] Allergies Active Allergy Reactions Criticality Noted Date Comments Atorvastatin Headache Low 11/30/2015 Chicken Headache Low 05/25/2020 Codeine Iodinated Contrast Media Shortness of breath,Itching High 07/18/2014 Noted at [facility] Epinephrine Flecainide Other (See comments) Low 09/29/2017 [...] Take by mouth as needed Active DULoxetine (CYMBALTA) 30 mg capsuleIndicati ons:Hip pain, chronic, [...] Date Dyslipidemia 10/17/2020 GERD (gastroesophageal reflux disease) 1 Hypercholesteremia 10/17/2020 SOB (shortness of breath) 10/17/2020 Hip pain, chronic, right 05/26/2020 Localized edema 07/05/2019 half-way current use of anticoagulant therapy 0 07/18/2017 [...] 68y- she doesn't want it Hypothyroidism 06/02/2009 Encounters Date Type Department Care Team Description 07/09/2024 Results Follow-Up [facility] G[facility]enterolog [facility] [address] [facility] [address]th [place] [address] [place] [address] Yolette Jenkins MD Surgical pathology 07/08/2024 9:04 AM CDT Anesthesia Event [facility] [address] [place] [address] [phone] Deandre Pat MD 07/08/2024 9:00 AM CDT - 07/08/2024 9:30 AM CDT Surgery [facility] [address] [place] [address] [phone] Yolette Jenkins MD ESOPHAGOGASTRODUODENOSCOPY ESOPHAGEAL GUIDE WIRE 07/08/2024 7:37 AM CDT - 07/08/2024 10:24 AM CDT Hospital Encounter [facility] [address] [place] [address] [phone] Yolette Jenkins MD Gastroesophageal reflux disease, unspecified whether esophagitis present; Celiac disease Discharge Disposition: Discharge to home or self care 07/01/2024 8:14 AM CDT - 07/01/2024 11:59 PM CDT Hospital Encounter [facility] [address] [place] [address] Discharge Disposition: Discharge to home or self care 07/01/2024 8:13 AM CDT - 07/01/2024 11:59 PM CDT Hospital Encounter [facility] ([facility]) [address] [place] [address] Discharge Disposition: Discharge to home or self care 07/01/2024 8:11 AM CDT - 07/01/2024 11:59 PM CDT Hospital Encounter [facility]) [address] [place] [address] Discharge Disposition: Discharge to home or self care 07/01/2024 Telephone [facility] [address] [facility] [address] [place] [address] [place] [address] Rupal Henderson LPN 06/30/2024 Telephone [facility] [address] [facility] 12th [place] [address] [place] [address] Rupal Henderson LPN Cardiac Clearance + Xarelto Hold 06/28/2024 Results Follow-Up [facility] [address] [facility] [address]th [place] [address] [place] [address] Yolette Jenkins MD High Resolution Esophageal Manometric Study - 06/21/2024 1:20 PM CDT - 06/21/2024 11:59 PM CDT Hospital Encounter [facility] [address] [place] [phone] Esophageal dysmotility; Esophageal dysphagia Discharge Disposition: Discharge to home or self care 06/17/2024 Telephone [facility] [address] [place] [phone] Rae Gilmore, FERMÍN 06/17/2024 Telephone [facility] [address] [place] [address] [phone] Rae Gilmore, FERMÍN 06/17/2024 Orders Only [facility] [address] [place] [address] Medical Office Building [address] [place] [phone] Yazmin Martínez LPN Esophageal dysmotility (Primary Dx); Esophageal dysphagia 06/09/2024 Telephone [facility] [address] [facility] Medical Office Building [address] [place] [address] Yazmin Martínez LPN Esophageal Manometry 06/09/2024 Orders Only [facility] [address] [facility] Medical Office Building [address] [place] [address] Yazmin Martínez LPN Esophageal dysmotility (Primary Dx); Esophageal dysphagia; Esophageal diverticulum 06/02/2024 1:15 PM CDT Office Visit [facility] [address] [facility] 12th [place] [address] [place] [address] Yolette Jenkins MD Esophageal dysmotility (Primary Dx); Esophageal dysphagia; Esophageal diverticulum from Last 3 Months Immunizations Immunization Administration Dates Next Due Influenza, Quadrivalent, Hig h Dose, Preservative Free, Intrr 12/14/2019 Influenza, Trivalent, High D ose, Split, Preservative Free, Intramuscular 12/11/2018,12/15/2017,12/25/2016,12/31 Moderna SARS-CoV-2 Monovalen t Vaccination (12+ YRS) 04/11/2020,03/14/2020 Pneumococcal Conjugate PCV 13 01/01/2016 Pneumococcal Polysaccharide PPV23 12/25/2012 ZOSTER LIVE 02/18/2008 ZOSTER Recombinant 08/18/2018,05/14/2018 Surgical History Surgery Date Site/Laterality Comments COLON SURGERY 02/17/1965 - 02/16/1966 N/A corrected a twisted bowel. No removal of affected bowel. HYSTERECTOMY 02/17/1971 - 02/17/1972 N/A uterus only LAPAROSCOPY 02/17/1981 - 02/16/1982 N/A for scar tissue SINUS SURGERY 02/17/1991 - 02/17/1992 N/A 1991 and again in 1992 ARM SURGERY 02/18/2000 - 02/16/2001 Right 4 total surgeries. 2000 - 2001. Reconstruction surgeries post traumatic accident with double fracture of right arm. CHOLECYSTECTOMY 02/17/2002 - 02/16/2003 N/A FOOT SURGERY 02/17/2007 - 02/17/2008 Left Restructure left foot CATARACT EXTRACTION 02/17/2009 - 02/16/2010 Bilateral CARDIAC ELECTROPHYSIOLOGY MAPPING AND ABLATION 02/17/2013 - 02/16/2014 N/A 2013, and again in 2018 CARDIOVERSION 11/17/2021 - 12/17/2021 N/A CARDIAC PACEMAKER PLACEMENT 12/10/2021 N/A RADIOFREQUENCY ABLATION NERVES 03/04/2023 N/A ablation of lumbar spine nerves. CRICOPHARYNGEAL MYOTOMY 12/31/2023 laser; subsequent UGI showed good flow past but distal dysmotility/stasis Medical History Medical History Date Comments Shingles 2007 2007, again in 2 014 Rheumatoid arthritis (HCC) 2012 Osteoarthritis 2014 Aortic aneurysm 2013 Degenerative arthritis of lumbar spine Congestive heart failure (CHF) ([facility]) GERD (gastroesophageal reflux disease) Migraines Celiac disease Hypothyroidism HTN (hypertension) Hyperlipidemia CHF (congestive heart failure) ([facility]) Cardiac arrhythmia Anxiety and depression Skin cancer of arm, right Skin cancer of face PONV (postoperative nausea and vomiting) Delayed emergence from general anesthesia Family History Medical History Relation Name Comments Arthritis Brother Family history of arthritis - (Added by TW Conv) Bladder Cancer Brother Arthritis Father Family history of arthritis - (Added by TW Conv) Kidney failure Father Arthritis Mother Family history of arthritis - (Added by TW Conv) Breast cancer Mother Heart failure Mother Relation Name Status Comments Brother Father Mother Social History Tobacco Use Types Packs/Day [...] on file 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 Gender Identity Not on file Sexual Orientation Not on file Obstetrics History Para Term AB IAB SAB Ectopic Multiple Livin g Live Births 2 2 Date Outcome GA Total Labor Labor/2nd/3rd Weight Sex Type Anes PTL Roseanne A1 A5 Name Clin Para Para Last Filed Vital Signs Vital Sign Reading [...] 07/08/2024 8:16 AM CDT Plan of Treatment Health Maintenance Due Date Last Done Comments Depression Screening 1945 DTaP/Tdap/Td Vaccine (1 - Tdap) 08/19/1954 Hepatitis B Screening 08/19/1961 Well Visit 65+ 08/19/2008 Covid-19 Vaccine (3 - 2023-2 5 season) 2023 04/11/2020, 03/14/2020 Osteoporosis Screening-Bone Density Scan 08/29/2024 08/29/2022 Influenza Vaccine (Season Ended) 2024 12/14/2019, 12/11/2018, 12/15/2017, Additional history exists Fall Risk Assessment 07/08/2025 07/08/2024 Pneumococcal vaccine 65+ Completed 01/01/2016, 1109/2012 Zoster Vaccine Completed 08/18/2018, 04/18, 02/18/2008 Medical Devices Implanted Type Area Wheel Alignment Mechanic Device Identifier Shelf Expiration Date Model / Serial / Lot Pacemaker Micra Pacemaker Chest Wall [employer] [id number] / / Procedures Procedure Name Priority Date/Time [...] biopsy) 07/08/2024 9:18 AM CDT Narrative PATHOLOGY [facility] - 07/09/2024 1:29 PM CDT [address] [address] Tele: Charisma Painting MD - C Software Engineer Note to Patients: This report may contain [...] PATHOLOGY REPORT Patient Name: JULIANNE GILBERT Address: [address] [place] [address] Gender: F : 1945 (Age: 78) Service: Gastro Location: [facility] Hospital #: [id number] Patient Type: [facility] Taken: 07/08/2024 Received 07/08/2024 Reported: 07/09/2024 Physician(s): Yolette Jnekins M.D. Aliza Aviles M.D. DIAGNOSIS: Stomach, polyp biopsy: - Fundic gland polyps and hyperplastic polyp; negative for dysplasia or malignancy - Chronic inflammation, mild - No Helicobacter pylori detected Stomach, mucosal biopsy: - Chronic gastritis, mild - No Helicobacter pylori detected - Negative for intestinal metaplasia or malignancy Tissue submitted as white plaque esophageal biopsy rule out Pascale: - Pascale esophagitis [facility]/07/09/2024 13:29 Examining Pathologist: Alex Barraza M.D. Report [...] filtered and submitted entirely in cassette C1. [facility]/07/08/2024 13:08 ,[facility] MICROSCOPIC DESCRIPTION: Sections of the gastric polyp [...] infiltrative fungal forms. Clerical Data Follows A; 91367, 52254 B; 37183, 25418 C; 89392, 17140 REPORT IMAGES AND/OR SCANNED DOCUMENTS ONLY VIEWABLE IN PDF FORMAT The immunohistochemical test(s) cited in this report, if any, was developed and its performance characteristics determined by [facility]. It has not been cleared or approved by the U.S. Food and Drug Administration. The FDA has determined that such clearance or approval is not necessary. This test is used for clinical purposes. It should not be regarded as investigational or for research. [facility] is certified under the Clinical Laboratory [...] part or completely in the following laboratories: [facility], [place] [facility], [place] [address] [facility], [address] [place] [address], [place] [address]. Yolette Jenkins MD LAB PATHOLOGY ORDERABLES Final Result PATHOLOGY [facility] Laboratory Receiving [address] [place] [address] * EGD (07/08/2024 7:50 AM CDT) Anatomical Region Laterality Modality Other Narrative Procedure Note Yolette Jenkins MD - 07/08/2024 7:50 AM CDT ENDOSCOPY LAB Patient Name: Julianne Gilbert Procedure Date: 07/08/2024 7:50 AM Admit Type: Outpatient Room: [facility] Date of : 1945 Instrument Name: [id number] [...] 0 Note Initiated On: 07/08/2024 7:50 AM Yolette Jenkins MD ENDOSCOPY PROCEDURES Sabiha l Result * XR Outside Reference (07/01/2024 8:14 AM CDT) Impressions [facility] - 07/01/2024 8:14 AM CDT These images are for Reference purposes only and have not been reviewed by [facility]iology. There will be no report generated by a [facility] Radiologist. Narrative [facility] - 07/01/2024 8:14 AM CDT EXAMINATION: Images For Reference Purposes Only Yolette Jenkins MD IMG XR PROCEDURES Final R esult Performing Organization Address [facility] de Phone Number [facility] * XR Outside Reference (07/01/2024 8:13 AM CDT) Impressions [facility] - 07/01/2024 8:13 AM CDT These images are for Reference purposes only and have not been reviewed by [facility]. There will be no report generated by a [facility] Radiologist. Narrative [facility] - 07/01/2024 8:13 AM CDT EXAMINATION: Images For Reference Purposes Only Yolette Jenkins MD IMG XR PROCEDURES Final R esult Performing Organization Address [facility] Co de Phone Number [facility] * XR Outside Reference (07/01/2024 8:11 AM CDT) Impressions [facility] - 07/01/2024 8:11 AM CDT These images are for Reference purposes only and have not been reviewed by [facility]. There will be no report generated by a [facility] Radiologist. Narrative [facility] - 07/01/2024 8:11 AM CDT EXAMINATION: Images For Reference Purposes Only us Yolette Jenkins MD IMG XR PROCEDURES Final R esult [facility] * High Resolution Esophageal Manometric Study - (06/28/2024 6:56 AM CDT) Anatomical Region Laterality Modality Other us Yloette Jenkins MD GI LAB PROCEDURE ORDERABL ES Final Result from Last 3 Months Insurance MEDICARE [employer] MEDICARE [employer]a [facility] MEDICARE RAILROAD [facility] Advance Directives For more information, please contact: [phone] * Full Code (Latest Code Status on File) Date Activated Date Inactivated Comments 07/08/2024 8:02 AM 07/08/2024 2:24 PM Care Teams Tree Chipper Relationship Specialty Start Date End Date Aliza Aviles MD [address] [place] [address] PCP - General Family Medicine 05/22/20 Referral, Self 05/22/20 William Naranjo MD Consulting Physician Medical Oncology 05/22/20
--- OUTSIDE RECORDS SUMMARY | 2024-07-20 14:41 | XMS_ITS | Encounter Summary ---
Author Organization [facility] Address [address] [place] [address] Phone Care Team Providers Care Solicitor Patent Name Role Phone Aliza Aviles MD Primary Care Provider Referral, Self Unavailable Unavailable William Naranjo MD Unavailable [phone] Encounter Details Date Type Department Care Team (Late st Contact Info) Description 07/09/2024 Results Follow-Up [facility] Gastroenterology [address] [facility] 12th [place] [address] [place] [phone] Yolette Jenkins MD [address] [place] [address] Surgical pathology Social History Tobacco Use Types Packs/Day Years Used Date Smoking Tobacco: Never Smokeless Tobacco: Never AUDIT-C Answer Date Recorded Q1: How often [...] on file 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 Gender Identity Not on file Sexual Orientation Not on file documented as of this encounter Ordered Prescriptions Prescription Sig Dispense Quantity Refills Last Filled Start Date End Date fluconazole (DIFLUCAN) 200 mg tablet Take 1 tablet (200 mg total) by mouth daily for 21 days 21 tablet 07/09/2024 07/30/2024 documented in this encounter Plan of Treatment Not on file documented as of this encounter Visit Diagnoses Not on filedocumented in this encounter Care Teams Solicitor Patent Relationship Specialty Start Date End Date Aliza Aviles MD [address] [place] [address] PCP - General Family Medicine 05/22/20 Referral, Self 05/22/20 William Naranjo MD Consulting Physician Medical Oncology 05/22/20 documented as of this encounter
--- OUTSIDE RECORDS SUMMARY | 2024-07-20 14:41 | XMS_ITS | Continuity of Care Document ---
Author Organization [facility] Address [address] [facility] [address] [place] [address] Phone Care Team Providers Care Embroidery Supervisor Name Role Phone Annamaria STEPHENSON, Nicci Unavailable Unavailable Allergies, Adverse Reactions, Alerts Substance Reaction Status Criticality PROCHLORPERAZINE MALEATE Active No Information PROCHLORPERAZINE EDISYLATE Active N o Information prochlorperazine Active No Informat ion Medications Medication Instructions Dosage Effective Dates (start - stop) Status Comments desipramine 10 mg tablet take 1-5 tablets (10-50 mg) 2 hours before bed - Active THYROID (unknown strength) take 1 tablet by oral route every day Not Available - Active XARELTO (unknown strength) take 1 tablet by oral route 2 times every day Not Available - Active ZETIA (unknown strength) take 1 tablet by oral route every day Not Available - Active TOPIRAMATE ER (unknown strength) take 2 capsule by oral route every day Not Available - Active TORSEMIDE (unknown strength) take 1 tablet by oral route every day Not Available - Active CYMBALTA (unknown strength) take 1 capsule by oral route 2 times every day Not Available - Active LORAZEPAM (unknown strength) take 1 tablet by oral route 3 times every day as needed Not Available - Active POTASSIUM CHLORIDE (unknown strength) take 2 capsule by oral route 2 times every day with food Not Available - Active Procedures Procedure Date OFFICE/OUTPATIENT VISIT EST R3 25 POSTOP FOLLOW-UP VISIT POSTOP FOLLOW-UP VISIT Cricopharyngeus Myotomy OFFICE/OUTPATIENT VISIT EST R3 Established patient office or other outp atient visit Office/Outpatient Visit New ENDOSCOPY SWALLOW TST (FEES) ENDOSCOPY SWALLOW TST EVAL Advance Directives Directive Yes / No Effective Date File Name Other Directive No N/A N/A WARNING:The information contained in this section is historical and is provided for information only and does not constitute a legal document or any assurance that the information is still accurate. Please verify the information with the sheffield of the legal document before using it for clinical purposes. Encounters Encounter Description Practice Location Reason(s) For Visit Diagnoses Date Provider Providers Copied on Encounter OFFICE/OUTPA TIENT VISIT EST R3 [facility] , [address] [place] [address], [place], [place], [id number] , [place] tel:[phone] [facility] Dysphagia, oropharyngeal phasePharyngoesophag eal dysphagia 5 Hoesli Nicci. [address] [place] [address], [address], [place]. tel:[phone] [facility] , [address] [place] [address], [id number] , [place] tel:[phone] [facility] Dysphagia, oropharyngeal phasePharyngoesophag eal dysphagia 5 Hoesli Nicci. [address] [place] [address], [address], [place]. tel:[phone] [facility] , [address] [place] [address], [id number] , [place] tel:[phone] [facility] Zenker's diverticulumDysphagi a, oropharyngeal phase 4 Hoesli Nicci. [address] [place] [address], [address], [place]. tel:[phone] [facility] , [address] [place] [address], [place], [place], [id number] , [place] tel:[phone] [facility] No Information 4 Hoesli Nicci. [address] [place] [address], [place], [address], [place]. tel:[phone] OFFICE/OUTPA TIENT VISIT EST R3 [facility] , [address] [place] [address] [address] [facility], [place], [place], [id number] , [phone] [facility] Pharyngoesophageal dysphagiaZenker's diverticulum 4 Annamaria Grajeda. [address] [place] [address], [address], [place]. [phone] Established patient office or other outpatient visit [facility] , [address] [place] [address], [place], [place], [id number] , [phone] [facility] Pharyngoesophageal dysphagiaZenker's diverticulum 4 Samuel Carrera. [address] [place] [address], [id number] . tel:[phone] Office/Outpa tient Visit [facility] , [address] [place] [address] [address] [facility], [place], [place], [id number] , [phone] [facility] Pharyngoesophageal dysphagiaZenker's diverticulumChronic cough 4 Samuel Carrera. [address] [place] [address], [id number] . [phone] Family History Family Member Type Diagnosis Age At Onset Mother Problem Cancer, breast 67 Mother Problem Hypercholesterolemia Father Problem Hypercholesterolemia Brother Problem Hypercholesterolemia Payers Payer name Insurance type Covered libertarian ID Shiela stephens(s) RR Medicare MB [id number] [facility] [id number] Social History Type Description Quantity Date Captured Comments Alcohol Use Details Unknown Caffeine Use Details Unknown Tobacco Use Status No Information Smoking Status Never smoker Non-Smoking Tobacco Use Details : No Details Available : No Details Available Sex Female Chief Complaint And Reason For Visit No Information Reason For Referral Reason For Referral No Information History Of Present Illness Encounter Date Complaint History Of Prese nt Illness No Information Functional Status Date Functional Assessmen t No Information Instructions Date Instruction Additional Infor mation No Information Assessments Type Assessment Date assessment Dysphagia, oropharyngeal phase F assessment Pharyngoesophageal dysphagia Mar Patient Care Teams Name Effective Dates (start - stop) Status Members No Information
== END ==
LOC: ANHLAB 14:38
PROVIDERS: PCP Family Medicine; Visit Provider Physician Assistant Surgical
DX: L72.12 Trichodermal cyst (principal); L28.0 Lichen simplex chronicus; L85.8 Other specified epidermal thickening
CPT/HCPCS: 88305

== ENCOUNTER → 2024-07-28 16:28 | Outpatient (REF) | payer MEDICARE, OTHER, SELFPAY ==
--- NOTE | 2024-07-28 16:28 | S_PTH ---
PATIENT: Porsha Bean LOC: [facility] U#:[id number] AGE/SX: 79/F ROOM: RE07/28/[address]: Nazanin Perez PA-C : 1945 BED: DIS: SPEC #: [id number] RECD: 07/29/24 07:54 STATUS: NIA REJaret #: [id number] ELBERT: 07/28/24 16:[address]: Nazanin Perez DEPT: [facility] Surgical RECD BY: Radha Vick ENTERED: 07/29/24 07:55 SP TYPE: Surgical OTHR DR: Aliza Aviles MD Tissues: A - Skin Procedures: Hematoxylin and Eosin Stain Gross and Microscopic Level 4
--- OUTSIDE RECORDS SUMMARY | 2024-07-28 18:09 | XMS_ITS | Clinical Summary ---
Author Organization [facility] Address Critical access hospital[address] [place] [address] Care Team Providers Care Power Hair Clipper Name Role Phone Aliza Aviles MD Primary Care Provider Referral, Self Unavailable Unavailable William Naranjo MD Unavailable [phone] Allergies Active Allergy Reactions Criticality Noted Date Comments Atorvastatin Headache Low 11/30/2015 Chicken Headache Low 05/25/2020 Codeine Iodinated Contrast Media Shortness of breath,Itching High 07/18/2014 Noted at [facility] Epinephrine Flecainide Other (See comments) Low [...] pain, chronic, right 05/26/2020 Localized edema 07/05/2019 salvage determiner current use of anticoagulant therapy 0 07/18/2017 [...] Department Care Team Description 07/09/2024 Results Follow-Up [facility] [address] [facility] Advanced Medicine 12th [place] [address] [place] [address] Yolette Jenkins MD Surgical pathology 07/08/2024 9:04 AM CDT Anesthesia Event [facility] [address] [place] [address] [phone] Deandre Pat MD 07/08/2024 9:00 AM CDT - 07/08/2024 9:30 AM CDT Surgery [facility] [address] [place] [phone] Yolette Jenkins MD ESOPHAGOGASTRODUODENOSCOPY ESOPHAGEAL GUIDE WIRE 07/08/2024 7:37 AM CDT - 07/08/2024 10:24 AM CDT Hospital Encounter [facility] [address] [place] [address] [phone] Yolette Jenkins MD Gastroesophageal reflux disease, unspecified whether esophagitis present; Celiac disease Discharge Disposition: Discharge to home or self care 07/01/2024 8:14 AM CDT - 07/01/2024 11:59 PM CDT Hospital Encounter [facility]) [address] [place] [address] Discharge Disposition: Discharge to home or self care 07/01/2024 8:13 AM CDT - 07/01/2024 11:59 PM CDT Hospital Encounter [facility]) [address] [place] [address] Discharge Disposition: Discharge to home or self care 07/01/2024 8:11 AM CDT - 07/01/2024 11:59 PM CDT Hospital Encounter [facility] ([facility]) [address] [place] [address] Discharge Disposition: Discharge to home or self care 07/01/2024 Telephone [facility] [address] [facility] Advanced Medicine 12th [place] [address] [place] [address] Rupal Henderson LPN 06/30/2024 Telephone [facility] [address] [facility] Medicine 12th [place] [address] [place] [address] Rupal Henderson LPN Cardiac Clearance + Xarelto Hold 06/28/2024 Results Follow-Up [facility] [address] [facility] 12th [place] [address] [place] [address] Yolette Jenkins MD High Resolution Esophageal Manometric Study - 06/21/2024 1:20 PM CDT - 06/21/2024 11:59 PM CDT Hospital Encounter [facility] [address] [place] [phone] Esophageal dysmotility; Esophageal dysphagia Discharge Disposition: Discharge to home or self care 06/17/2024 Telephone [facility] [address] [place] [phone] Rae Gilmore, FERMÍN 06/17/2024 Telephone [facility] [address] [place] [address] [phone] Rae Gilmore, FERMÍN 06/17/2024 Orders Only [facility] [address] [place] [address] Medical Office Building [address] [place] [phone] Yazmin Martínez LPN Esophageal dysmotility (Primary Dx); Esophageal dysphagia 06/09/2024 Telephone [facility] [address] [facility] Medical Office Building [address] [place] [address] Yazmin Martínez LPN Esophageal Manometry 06/09/2024 Orders Only [facility] [address] [facility] Medical Office Building [address] [place] [address] Yazmin Martínez LPN Esophageal dysmotility (Primary Dx); Esophageal dysphagia; Esophageal diverticulum 06/02/2024 1:15 PM CDT Office Visit [facility] [address] [facility] 12th [place] [address] [place] [address] Yolette Jenkins MD Esophageal dysmotility (Primary Dx); [...] of lumbar spine Congestive heart failure (CHF) ([facility]) GERD (gastroesophageal reflux disease) Migraines Celiac disease Hypothyroidism HTN (hypertension) Hyperlipidemia CHF (congestive heart failure) ([facility]) Cardiac arrhythmia Anxiety and depression [...] on file Legal Sex Female 10:34 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 Gender Identity Not on file Sexual Orientation [...] 04/18, 02/18/2008 Medical Devices Implanted Type Area Mortgage Loan Closer Device Identifier Shelf Expiration Date Model / Serial / Lot Pacemaker Micra Pacemaker Chest Wall [employer] [id number] / / Procedures Procedure Name Priority Date/Time [...] biopsy) 07/08/2024 9:18 AM CDT Narrative PATHOLOGY [facility] - 07/09/2024 1:29 PM CDT [address] [address] Tele: Charisma Painting MD - Style Advisor Note to Patients: This report may contain [...] PATHOLOGY REPORT Patient Name: JULIANNE GILBERT Address: [address] [place] [address] Gender: F : 1945 (Age: 78) Service: Gastro Location: [facility], Hospital #: [id number] Patient Type: [facility] SAME DAY SURGERY Taken: 07/08/2024 Received 07/08/2024 Reported: 07/09/2024 Physician(s): Yolette Jenkins M.D. Aliza Aviles M.D. DIAGNOSIS: Stomach, polyp biopsy: - Fundic gland polyps and hyperplastic polyp; negative for dysplasia or malignancy - Chronic inflammation, mild - No Helicobacter pylori detected Stomach, mucosal biopsy: - Chronic gastritis, mild - No Helicobacter pylori detected - Negative for intestinal metaplasia or malignancy Tissue submitted as white plaque esophageal biopsy rule out Pascale: - Pascale esophagitis [facility]/07/09/2024 13:29 Examining Pathologist: Alex Barraza M.D. Report [...] filtered and submitted entirely in cassette C1. [facility]/07/08/2024 13:08 ,[facility] MICROSCOPIC DESCRIPTION: Sections of the gastric polyp [...] infiltrative fungal forms. Clerical Data Follows A; 81349, 02157 B; 15755, 25609 C; 32153, 34703 REPORT IMAGES AND/OR SCANNED DOCUMENTS ONLY VIEWABLE IN PDF FORMAT The immunohistochemical test(s) cited in this report, if any, was developed and its performance characteristics determined by [facility] Pathology Department. It has not been cleared or approved by the U.S. Food and Drug Administration. The FDA has determined that such clearance or approval is not necessary. This test is used for clinical purposes. It should not be regarded as investigational or for research. [facility] Laboratory is certified under the Clinical Laboratory [...] part or completely in the following laboratories: [facility], [facility]5 [facility], [place] [address] [facility], [address] [place] [address], [place] [address]. Yolette Jenkins MD LAB PATHOLOGY ORDERABLES Final Result PATHOLOGY [facility] Laboratory Receiving [address] [place] [address] * EGD (07/08/2024 7:50 AM CDT) Anatomical Region Laterality Modality Other Narrative Procedure Note Yolette Jenkins MD - 07/08/2024 7:50 AM CDT ENDOSCOPY LAB Patient Name: Julianne Gilbert Procedure Date: 07/08/2024 7:50 AM Admit Type: Outpatient Room: [facility] Date of : 1945 Instrument Name: [id number] [...] only and have not been reviewed by [facility] Radiology. There will be no report generated by a [facility] Radiologist. Narrative [facility] - 07/01/2024 8:14 AM CDT EXAMINATION: Images For Reference Purposes Only Yolette Jenkins MD IMG XR PROCEDURES Final R esult Performing Organization Address [facility] de Phone Number [facility] * XR Outside Reference (07/01/2024 8:13 AM CDT) Impressions [facility] - 07/01/2024 8:13 AM CDT These images are for Reference purposes only and have not been reviewed by [facility]iology. There will be no report generated by a [facility] Radiologist. Narrative [facility] - 07/01/2024 8:13 AM CDT EXAMINATION: Images For Reference Purposes Only Yolette Jenkins MD IMG XR PROCEDURES Final R esult Performing Organization Address [facility] Co de Phone Number [facility] * XR Outside Reference (07/01/2024 8:11 AM CDT) Impressions [facility] - 07/01/2024 8:11 AM CDT These images are for Reference purposes only and have not been reviewed by [facility]. There will be no report generated by a [facility] Radiologist. Narrative [facility] - 07/01/2024 8:11 AM CDT EXAMINATION: Images For Reference Purposes Only us Yolette Jenkins MD IMG XR PROCEDURES Final R esult [facility] * High Resolution Esophageal Manometric Study - (06/28/2024 6:56 AM CDT) Anatomical Region Laterality Modality Other us Yolette Jenkins MD GI LAB PROCEDURE ORDERABL ES Final Result from Last 3 Months Insurance MEDICARE [employer] MEDICARE [employer]pa [facility] MEDICARE RAILROAD [facility] Advance Directives For more information, please contact: [phone] * Full Code (Latest Code Status on File) Date Activated Date Inactivated Comments 07/08/2024 8:02 AM 07/08/2024 2:24 PM Care Teams Power Hair Clipper Relationship Specialty Start Date End Date Aliza Aviles MD [address] [place] [address] PCP - General Family Medicine 05/22/20 Referral, Self 05/22/20 William Naranjo MD Consulting Physician Medical Oncology 05/22/20
--- OUTSIDE RECORDS SUMMARY | 2024-07-28 18:09 | XMS_ITS | Clinical Summary ---
Author Organization [facility] Address [address] [place] [phone] Phone Care Team Providers Care Etcher Enameling Name Role Phone Aliza Aviles MD Primary [...] patient Take 100 mcg by mouth daily vice president of nursing. 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 Not on file Not on file Not on file Not on file Not on file Not on file Not on file Last Filed Vital Signs Vital Sign Reading Time Taken Comments Blood Pressure 128/84 04/02/2024 12:54 PM MORTGAGE OPERATIONS MANAGER Pulse 87 03/08/2022 11:31 AM MORTGAGE OPERATIONS MANAGER Temperature 36.5 C (97.7 F) 09/01/2019 11:48 AM CDT Respiratory Rate 14 06/02/2009 1:43 PM CDT Oxygen Saturation 96% 03/08/2022 11:31 AM MORTGAGE OPERATIONS MANAGER Inhaled Oxygen Concentration - - Weight 70.8 kg (156 lb) 04/02/2024 12:54 PM MORTGAGE OPERATIONS MANAGER Height 152.4 cm (5') 04/02/2024 12:54 PM MORTGAGE OPERATIONS MANAGER Body Mass Index 30.47 04/02/2024 12:54 PM MORTGAGE OPERATIONS MANAGER Plan of Treatment Upcoming Encounters Date Type Department Care Team (Late st Contact Info) Description 04/04/2025 12:00 PM MORTGAGE OPERATIONS MANAGER [facility] [address] [place] [address] Svetlana Kaur, SHOVEL MECHANIC [address] [facility] [address] [place] [phone] 04/04/2025 12:45 PM MORTGAGE OPERATIONS MANAGER Office Visit [facility] Breast Surgery [place] [address] [facility] [address] [place] [address] Svetlana Kaur, SHOVEL MECHANIC [address] [facility] [address] [place] [address] Health Maintenance Due Date Last Done Comments DTAP/TDAP/TD VACCINES (1 - Tdap) 08/19/1962 RSV VACCINE (60+ or ) (1 - 1-dose 75+ series) 08/19/2018 INFLUENZA VACCINE (#1) 2023 , 12/11/2018, 12/15/2017, Additional history exists COVID-19 Vaccine (3 - 2023-2 5 season) 2023 04/11/2020, 03/14/2020 OSTEOPOROSIS SCREENING 08/30/2027 , 08/29/2022, 01/05/2018, Additional history exists PNEUMOCOCCAL VACCINE 50+ YEARS Completed 01/01/2016 , 12/25/2012 ZOSTER VACCINE Completed 08/18/2018, 04/18, 02/18/2008 Insurance [facility] MEDICARE RAILROAD Care Teams Etcher Enameling Relationship Specialty Start Date End Date Aliza Aviles MD [address] [place] [address] PCP - General Family Practice 08/05/18
--- OUTSIDE RECORDS SUMMARY | 2024-07-28 18:09 | XMS_ITS | Encounter Summary ---
Author Organization [facility] Address [address] [place] [address] Phone Care Team Providers Care Supervisor [employer] Name Role Phone Aliza Aviles MD Primary Care Provider Referral, Self Unavailable Unavailable William Naranjo MD Unavailable [phone] Encounter Details Date Type Department Care Team (Late st Contact Info) Description 12/31/2023 Orders Only [facility] Scanning, Provider Social History Tobacco Use Types Packs/Day Years Used Date Smoking Tobacco: Never Smokeless Tobacco: Never Comments Unknown Sex and Gender Information Value Date Recorded Sex Assigned at Not on file Legal Sex Female 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
--- OUTSIDE RECORDS SUMMARY | 2024-07-28 18:09 | XMS_ITS | Referral Summary ---
Author Organization [facility] Address [address] [place] [address] Care Team Providers Care Audograph Operator Name Role Phone Aliza Aviles MD Primary Care Provider Referral, Self Unavailable Unavailable William Naranjo MD Unavailable [phone] Encounters Date Type Department Care Team Description 07/09/2024 Results Follow-Up [facility] Gastroenterolog y [address] 12th [place] [address] [place] [address] Yolette Jenkins MD Surgical pathology 07/08/2024 9:04 AM CDT Anesthesia Event [facility] GI Center [address] [place] [phone] Deandre Pat MD 07/08/2024 9:00 AM CDT - 07/08/2024 9:30 AM CDT Surgery [facility] [address] [place] [phone] Yolette Jenkins MD ESOPHAGOGASTRODUODENOSCOPY ESOPHAGEAL GUIDE WIRE 07/08/2024 7:37 AM CDT - 07/08/2024 10:24 AM CDT Hospital Encounter [facility] [address] [place] [phone] Yolette Jenkins MD Gastroesophageal reflux disease, unspecified whether esophagitis present; Celiac disease Discharge Disposition: Discharge to home or self care 07/01/2024 Telephone [facility] Gastroenterolog y [address] [place] [address] [place] [address] Rupal Henderson LPN 07/01/2024 8:14 AM CDT - 07/01/2024 11:59 PM CDT Hospital Encounter [facility] ([facility]) [address] [place] [address] Discharge Disposition: Discharge to home or self care 07/01/2024 8:13 AM CDT - 07/01/2024 11:59 PM CDT Hospital Encounter [facility] ([facility]) [address] [place] [address] Discharge Disposition: Discharge to home or self care 07/01/2024 8:11 AM CDT - 07/01/2024 11:59 PM CDT Hospital Encounter [facility] ([facility]) [address] [place] [address] Discharge Disposition: Discharge to home or self care 06/30/2024 Telephone [facility] Gastroenterolog y [address] [place] [address] [place] [address] Rupal Henderson LPN Cardiac Clearance + Xarelto Hold 06/28/2024 Results Follow-Up [facility] Gastroenterolog y [address] [place] [address] [place] [address] Yolette Jenkins MD High Resolution Esophageal Manometric Study - 06/21/2024 1:20 PM CDT - 06/21/2024 11:59 PM CDT Hospital Encounter [facility] [address] [place] [phone] Esophageal dysmotility; Esophageal dysphagia Discharge Disposition: Discharge to home or self care 06/17/2024 Telephone [facility] [address] [place] [phone] Rae Gilmore RN 06/17/2024 Telephone [facility] [address] [place] [phone] Rae Gilmore RN 06/17/2024 Orders Only [facility] Gastroenterolog y [address] [place] [address] Medical Office [address] [place] [phone] Yazmin Martínez LPN Esophageal dysmotility (Primary Dx); Esophageal dysphagia 06/09/2024 Telephone [facility] Gastroenterolog [facility] [address] [place] [address] Medical Office [address] [place] [phone] Yazmin Martínez LPN Esophageal Manometry 06/09/2024 Orders Only [facility] Gastroenter[facility] [address] [place] [address] Medical Office [address] [place] [address] Yazmin Martínez LPN Esophageal dysmotility (Primary Dx); Esophageal dysphagia; Esophageal diverticulum 06/02/2024 1:15 PM CDT Office Visit [facility] Gastroenterolog y [address] [place] [address] [place] [address] Yolette Jenkins MD Esophageal dysmotility (Primary Dx); Esophageal dysphagia; Esophageal diverticulum from Last 3 Months Allergies Active Allergy Reactions Criticality Noted Date Comments Atorvastatin Headache Low 11/30/2015 Chicken Headache Low 05/25/2020 Codeine Iodinated Contrast Media Shortness of breath,Itching High 07/18/2014 Noted at [facility] Epinephrine Flecainide Other (See comments) Low 09/29/2017 [...] pain, chronic, right 05/26/2020 Localized edema 07/05/2019 longterm current use of anticoagulant therapy 0 07/18/2017 [...] on file Legal Sex Female 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 Gender Identity Not on file Sexual Orientation [...] on file Medical Devices Implanted Type Area Pattern Data Operator Device Identifier Shelf Expiration Date Model / Serial / Lot Pacemaker Micra Pacemaker Chest Wall [employer] [id number] / / Procedures Procedure Name Priority Date/Time [...] biopsy) 07/08/2024 9:18 AM CDT Narrative PATHOLOGY [facility] - 07/09/2024 1:29 PM CDT [address] [address] Tele: Charisma Painting MD - Extruding Press Adjuster Note to Patients: This report may contain [...] REPORT Patient Name: JULIANNE GILBERT Address: [address] [place] [address] Gender: F : 1945 (Age: 78) Service: Gastro Location: [facility], Hospital #: [id number] [place] [facility] [place] Taken: 07/08/2024 Received [...] biopsy rule out Pascale: - Pascale esophagitis [facility]/07/09/2024 13:29 Examining Pathologist: Alex Barraza M.D. [...] filtered and submitted entirely in cassette C1. [facility]/07/08/2024 13:08 ,[facility] MICROSCOPIC DESCRIPTION: Sections of the [...] infiltrative fungal forms. Clerical Data Follows A; 98831, 64153 B; 09724, 88477 C; 46774, 33952 REPORT IMAGES AND/OR SCANNED DOCUMENTS ONLY VIEWABLE IN PDF FORMAT The immunohistochemical test(s) cited in this report, if any, was developed and its performance characteristics determined by [facility] Pathology Department. It has not been cleared or approved by the U.S. Food and Drug Administration. The FDA has determined that such clearance or approval is not necessary. This test is used for clinical purposes. It should not be regarded as investigational or for research. [facility] Laboratory is certified under the Clinical Laboratory [...] part or completely in the following laboratories: [facility], [address] [place] [address], [address] [place] [address]. Yolette Jenkins MD LAB PATHOLOGY ORDERABLES Final Result PATHOLOGY [facility] Laboratory Receiving [address] [place] [address] * EGD (07/08/2024 7:50 AM CDT) Anatomical Region Laterality Modality Other Narrative Procedure Note Yolette Jenkins MD - 07/08/2024 7:50 AM CDT ENDOSCOPY LAB Patient Name: Julianne Gilbert Procedure Date: 07/08/2024 7:50 AM Admit Type: Outpatient Room: [facility] Date of : 1945 Instrument Name: [id number] [...] Outside Reference (07/01/2024 8:14 AM CDT) Impressions [facility] - 07/01/2024 8:14 AM CDT These images are for Reference purposes only and have not been reviewed by [facility] Radiology. There will be no report generated by a [facility] Radiologist. Narrative [facility] - 07/01/2024 8:14 AM CDT EXAMINATION: Images For Reference Purposes Only Yolette Jenkins MD IMG XR PROCEDURES Final R esult Performing Organization Address [facility] de Phone Number [email or web address] * XR Outside Reference (07/01/2024 8:13 AM CDT) Impressions [facility] - 07/01/2024 8:13 AM CDT These images are for Reference purposes only and have not been reviewed by [facility] Radiology. There will be no report generated by a [facility] Radiologist. Narrative [facility] - 07/01/2024 8:13 AM CDT EXAMINATION: Images For Reference Purposes Only Yolette Jenkins MD IMG XR PROCEDURES Final R esult Performing Organization Address [facility] de Phone Number [email or web address] * XR Outside Reference (07/01/2024 8:11 AM CDT) Impressions [facility] - 07/01/2024 8:11 AM CDT These images are for Reference purposes only and have not been reviewed by [facility] Radiology. There will be no report generated by a [facility] Radiologist. Narrative [facility] - 07/01/2024 8:11 AM CDT EXAMINATION: Images For Reference Purposes Only Yolette Jenkins MD IMG XR PROCEDURES Final R esult Performing Organization Address [facility] de Phone Number [email or web address] * High Resolution Esophageal Manometric Study - (06/28/2024 6:56 AM CDT) Anatomical Region Laterality Modality Other us Yolette Jenkins MD GI LAB PROCEDURE ORDERABL ES Final Result from Last 3 Months Insurance MEDICARE RAILROAD MEDICARE RAILROAD MEDICARE [employer] [facility] Advance Directives For more information, please contact: [phone] * Full Code (Latest Code Status on File) Date Activated Date Inactivated Comments 07/08/2024 8:02 AM 07/08/2024 2:24 PM Care Teams Audograph Operator Relationship Specialty Start Date End Date Aliza Aviles MD [address] [place] [address] PCP - General Family Medicine 05/22/20 Referral, Self 05/22/20 William Naranjo MD Consulting Physician Medical Oncology 05/22/20
--- OUTSIDE RECORDS SUMMARY | 2024-07-28 18:09 | XMS_ITS | Encounter Summary ---
Author Organization [facility] Address [address] [place] [address] Phone Care Team Providers Care Vice President Regulatory Name Role Phone Aliza Aviles MD Primary Care Provider Referral, Self Unavailable Unavailable William Naranjo MD Unavailable Encounter Details Date Type Department Care Team (Late st Contact Info) Description 07/09/2024 Results Follow-Up [facility] Gastroenterology [address] [facility] 12th [place] [address] [place] [phone] Yolette Jenkins MD [address] [place] [address] Surgical pathology Social History Tobacco Use Types [...] on file Legal Sex Female 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
--- OUTSIDE RECORDS SUMMARY | 2024-07-28 18:09 | XMS_ITS | Encounter Summary ---
Author Organization [facility] Address 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 Not on file Not on file Not on file Not on file Not on file Not on file Not on file documented as of this encounter Plan of Treatment Upcoming Encounters Date Type Department Care Team (Late st Contact Info) Description 04/04/2025 12:00 PM CUPOLA HOIST OPERATOR Appointment [facility] [address] [place] [address] Svetlana Kaur, [place] [address] [place] [address] 04/04/2025 12:45 PM CUPOLA HOIST OPERATOR Office Visit [facility] Breast Surgery Billpia Montalvo [address] [place] [address] Svetlana Kaur, [place] [address] [place] [address] documented as of this encounter Visit Diagnoses Not on filedocumented in this encounter Care Teams Mission Manager Relationship Specialty Start Date End Date Aliza Aviles MD [address] [place] [phone] PCP - General Family Practice 08/05/18 documented as of this encounter
--- OUTSIDE RECORDS SUMMARY | 2024-07-28 18:09 | XMS_ITS | Encounter Summary ---
Author Organization [facility] Address [address] [place] [address] Phone Care Team Providers Care Rag Room Supervisor Name Role Phone Aliza Aviles MD Primary Care Provider Referral, Self Unavailable Unavailable William Naranjo MD Unavailable [phone] Encounter Details Date Type Department Care Team (Late st Contact Info) Description 06/28/2024 Results Follow-Up [facility] Gastroenterology [address] 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
--- OUTSIDE RECORDS SUMMARY | 2024-07-28 18:09 | XMS_ITS | Continuity of Care Document ---
Author Organization [facility] Address [address] [facility] [address] [place] [address] Phone Care Team Providers Care Rose Grader Name Role Phone Annamaria STEPHENSON, Nicci Unavailable [...] on Encounter OFFICE/OUTPA TIENT VISIT EST R3 [facility] , [address] [place] [address], [place], [place], [id number] , [place] tel:[phone] [facility] Dysphagia, oropharyngeal phasePharyngoesophag eal dysphagia 5 Hoesli Nicci. [address] [place] [address], [address], [place]. tel:[phone] [facility] , [address] [place] [address], [id number] , [place] tel:[phone] [facility] Dysphagia, oropharyngeal phasePharyngoesophag eal dysphagia 5 Hoesli Nicci. [address] [place] [address], [address], [place]. tel:[phone] [facility] , [address] [place] [address], [id number] , [place] tel:[phone] [facility] Zenker's diverticulumDysphagi a, oropharyngeal phase 4 Hoesli Nicci. [address] [place] [address], [address], [place]. tel:[phone] [facility] , [address] [place] [address], [place], [place], [id number] , [place] tel:[phone] [facility] No Information 4 Hoesli Nicci. [address] [place] [address], [place], [address], [place]. tel:[phone] OFFICE/OUTPA TIENT VISIT EST R3 [facility] , [address] [place] [address] [address] [facility], [place], [id number] , [phone] [facility] Pharyngoesophageal dysphagiaZenker's diverticulum 4 Annamaria Grajeda. [address] [place] [address], [address], [place]. [phone] Established patient office or other outpatient visit [facility] , [address] [place] [address], [place], [place], [id number] , [phone] [facility] Pharyngoesophageal dysphagiaZenker's diverticulum 4 Samuel Carrera. [address] [place] [address], [id number] . tel:[phone] Office/Outpa tient Visit [facility] , [address] [place] [address] [address] [facility], [place], [place], [id number] , [phone] [facility] Pharyngoesophageal dysphagiaZenker's diverticulumChronic cough 4 Samuel Carrera. [address] [place] [address], [id number] . [phone] Family History Family Member Type Diagnosis Age At Onset Mother Problem Cancer, breast 67 Mother Problem Hypercholesterolemia Father Problem Hypercholesterolemia Brother Problem Hypercholesterolemia Payers Payer name Insurance type Covered alliance party ID Shiela stephens(s) RR Medicare MB [id number] [facility] [id number] Social History Type Description Quantity Date Captured [...]
== END ==
LOC: ANHLAB 16:28
PROVIDERS: PCP Family Medicine; Visit Provider Physician Assistant Surgical
DX: L90.5 Scar conditions and fibrosis of skin (principal); L08.9 Local infection of the skin and subcutaneous tissue, unspecified
CPT/HCPCS: 88305

== ENCOUNTER 2024-08-03 15:08 | Outpatient (CLI) | payer MEDICARE, OTHER, SELFPAY ==
--- NOTE | ~2024-08-03 | CT_ITS ---
CT Scan of the Chest without Contrast: Clinical Indication: Chronic cough Technique: Contiguous sections were acquired throughout the chest without intravenous contrast. Dose reduction technique was used on this scan by utilizing automated exposure control and iterative recon struction technique. The dose-length product (DLP) was 139.21 mGy-cm. Findings: There is no evidence of any significant mediastinal, hilar or axillary lymphadenopathy. Ascending aor ta measures 4.4 cm in diameter. There is no evidence of pleural or pericardial effusion. The lungs are clear. No pulmonary nodules or infiltrates are noted. Images through the upper abdomen reveal no abnormalities. Impression: Clear lungs. 4.4 cm ascending aortic aneurysm. Reviewed, dictated and finalized at location . Impression: Clear lungs. 4.4 cm ascending aortic aneurysm.
--- OUTSIDE RECORDS SUMMARY | 2024-08-03 16:04 | XMS_ITS ---
0.02 % Solution 2 Inhalation every 4-6 hours; Duration: 30 ,PRN Reason:for SOB 05/23/2023 Not-Taking AeroChamber MV - Miscellaneous MISCELLANEOUS; Duration: 0 07/10/2021 Not-Taking Topiramate 25 MG Tablet 1 tablet Orally twice a day; Duration: 90 days Active DULoxetine HCl 60 MG Capsule Delayed Release Particles 1 capsule Orally Once a day; Duration: 90 days Active LORazepam 1 MG Tablet 1 tablet as needed (Do not take with hydrocodone) Oral 3 times a day; Duration: 30 days 07/28/2024 Active Zetia 10 MG Tablet 1 Oral every day; Duration: 0 10/17/2022 Active Maxalt 10 MG Tablet 1 tablet Orally Once a day As needed 1 tablet once, may repeat at 2 hour intervals. 03/16/2024 Unknown PriLOSEC OTC 20 MG Tablet Delayed Release 1/2 Oral every day; Duration: 0 08/16/2020 Active Lidoderm 5 % Patch 1 External every day; Duration: 0 12/20/2021 Unknown Spironolactone 25 MG Tablet 1 tablet Orally daily; Duration: 30 days 07/16/2024 Active Immunizations Vaccine Route Administration Date Status Comme nts Zoster Unknown 02/18/2008 Administered ,sourcename : Historical information -source unspecified Source VFC Code: : Zoster Unknown 05/14/2018 Administered ,sourcename : Historical information -source unspecified Source VFC Code: : Pneumococcal polysaccharide PPV23 Unknown 12/25/2012 Administered ,sourcename : Historical information -source unspecified Source VFC Code: : Pneumococcal conjugate PCV 13 Unknown 01/01/2016 Administered ,sourcename : Historical information -source unspecified Source VFC Code: : [employer] Covid-19 Vaccine 1st dose IM Intramuscular 12/10/2023 Administered ,sourcename : N ew immunization record ,immstatus : Complete Moderna Covid-19 Vaccine 1st dose Unknown 03/14/2020 Administered Source VFC Code: : Moderna Covid-19 Vaccine 1st dose Unknown 04/11/2020 Administered Source VFC Code: : Moderna Covid-19 Vaccine 1st dose IM Intramuscular 12/26/2020 Administered Source VFC Code: : Moderna Covid-19 Vaccine 1st dose Unknown 09/11/2021 Administered Source VFC Code: : Moderna Covid-19 Vaccine 1st dose Unknown 11/29/2021 Administered Source VFC Code: : Influenza, high-dose seasonal, quadrivalent, preservative free >65 yrs Unknown 11/29/2021 Administered Source VFC Code: : Influenza, high dose seasonal IM Intramuscular 12/10/2023 Administered ,sourcename : N ew immunization record ,immstatus : Complete Social History Tobacco Use: Social History Observation Description Date Details (start date - stop date) Never Smoker NA - NA Social History Household: Social Info Question Answer Notes Household Marital status: Number of adults in household: 2 Drug/Alcohol: Social Info Question Answer Notes AUDIT-C (Standard) Did you have a drink containing alcohol in the past year? 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 , Alcohol history:Never drinks alcohol , Tobacco history:Never smoker , Marital status: , Number of children:2 Problems Problem Type SNOMED Code ICD Code Onset Dates Problem Status W/U Status Risk Notes Problem Paroxysmal atrial fibrillation (161211774) Paroxysmal atrial fibrillation (I48.0) Active confirmed Problem Acquired diverticulum of esophagus (08514670) Diverticulum of esophagus, 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) Active confirmed Problem Cardiac pacemaker in situ (733633595) Pacemaker (Z95.0) Active confirmed Problem Radiology result abnormal (559457911) Abnormal chest CT (R93.89) Active confirmed Problem Hyperlipidemia (20283663) Hyperlipidemia, unspecified (E78.5) 023 Active confirmed Problem Hyperkalemia (06613354) Hyperkalemia (E87.5) 023 Active confirmed Problem Major depression, single episode (61796597) Major depressive disorder, single episode, unspecified (F32.9) 021 Active confirmed Problem Atrial fibrillation (33445834) Unspecified atrial fibrillation (I48.91) 024 Active confirmed Problem Heart failure (46706195) Heart failure, unspecified (I50.9) 023 Active confirmed Problem 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 (303671346) Pleural plaque without asbestos (J92.9) 022 Active confirmed Problem Disorder of pleura (91521260) Other specified pleural conditions (J94.8) Active confirmed Problem Acanthosis (36701296) Other specified epidermal thickening (L85.8) 024 Active confirmed Problem Osteoarthritis (758960392) Unspecified osteoarthritis, unspecified site (M19.90) Active confirmed Problem Acquired unequal limb length (336787015803340) Unequal limb length (acquired), unspecified site (M21.70) Active confirmed Problem Disorder of bone (disorder) (51571761) Other specified disorders of bone, unspecified site (M89.8X9) Active confirmed Problem Bradycardia (93516448) Bradycardia, unspecified (R00.1) Active confirmed Problem Pleurodynia (6813062) Pleurodynia (R07.81) Active confirmed Problem Paresthesia (finding) (41886635) Paresthesia of skin (R20.2) Active confirmed Problem Abnormal gait (98901272) Other abnormalities of gait and mobility (R26.89) 023 Active confirmed Problem Cardiac pacemaker in situ (754159793) Presence of cardiac pacemaker (Z95.0) Active confirmed Problem Spinal stenosis of lumbar region (60315255) Spinal stenosis, lumbar region without neurogenic claudication (M48.061) 023 Active confirmed Problem Chronic kidney disease stage 3 (disorder) (647406585) Chronic kidney disease, stage 3 unspecified (N18.30) Active confirmed Problem Aneurysm of ascending aorta (disorder) (186012993) Aneurysm of the ascending aorta, without rupture (I71.21) Active confirmed 4.5 cm as of 05/19/23 Problem Other specified symptoms and signs involving the circulatory and respiratory systems (R09.89) Inactive confirmed Problem Abnormal gait (80675034) Unspecified abnormalities of gait and mobility (R26.9) 023 Inactive confirmed Problem 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 confirmed Problem Complete atrioventricular block (04390251) Atrioventricular block, complete (I44.2) Active confirmed Problem Moderate major depression, single episode (68871745) Major depressive disorder, single episode, moderate (F32.1) Active confirmed Problem Hypothyroidism (37103333) Hypothyroidism, unspecified (E03.9) Active confirmed Problem Leukopenia (04668256) Decreased white blood cell count, unspecified (D72.819) Active confirmed Problem Peripheral vascular disease (113874776) Peripheral vascular disease, unspecified (I73.9) Active confirmed Problem Suspected disease caused by Severe acute respiratory coronavirus 2 (situation) (798436120) Encounter for screening for COVID-19 (Z11.52) Inactive confirmed Problem Imaging of gastrointestinal tract abnormal (945623425) Abnormal findings on diagnostic imaging of other parts of digestive tract (R93.3) Inactive confirmed Problem Unspecified symptoms and signs involving the musculoskeletal system (R29.91) Inactive confirmed Problem Body mass index 30.00 to 34.99 (468971322756767) Body mass index (BMI) 34.0-34.9, adult (Z68.34) Active confirmed Problem Muscle pain (56364645) Myalgia, unspecified site (M79.10) Active confirmed Problem Long-term current use of anticoagulant (682291554) longterm (current) use of anticoagulants (Z79.01) Active confirmed Problem Postmenopausal state (69580574) Asymptomatic menopausal state (Z78.0) Active confirmed Problem Vaccination given (986021707) Encounter for immunization (Z23) Active confirmed Problem Adult health examination (755703069) Encounter for general adult medical examination without abnormal findings (Z00.00) Active confirmed Problem Fracture of lumbar spine and/or pelvis (392944459) Fracture of unspecified parts of lumbosacral spine and pelvis, initial encounter for closed fracture (S32.9XXA) Active confirmed Problem Solitary pulmonary nodule (783870488) Solitary pulmonary nodule (R91.1) Active confirmed left lower lobe, stable Problem Hyperglycemia (56416907) Hyperglycemia, unspecified (R73.9) Active confirmed Problem Ataxia (27065246) Ataxia, unspec ified (R27.0) Active confirmed Problem Congenital diverticulum of esophagus (460220907) 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 confirmed Problem Age-related osteoporosis (732219816) Age-related osteoporosis without current pathological fracture (M81.0) Active confirmed Problem Backache (457553251) Dorsalgia, unspecified (M54.9) Active confirmed Problem Rheumatoid arthritis (69927540) Rheumatoid arthritis, unspecified (M06.9) Active confirmed Problem Seborrheic keratosis (14386540) Other seborrheic keratosis (L82.1) Active confirmed Problem Gastro-esophageal reflux disease without esophagitis (679571455) Gastro-esophageal reflux disease without esophagitis (K21.9) Active confirmed Problem Abdominal aortic aneurysm without rupture (04306970) Abdominal aortic aneurysm, without rupture (I71.4) Active confirmed Problem Essential hypertension (58112741) Essential (primary) hypertension (I10) Active confirmed Problem Anxiety disorder (968878152) Anxiety disorder, unspecified (F41.9) Active confirmed Problem Aneurysm of ascending aorta (disorder) (263104295) Aneurysm of ascending aorta without rupture (I71.21) Active confirmed Problem Imaging result abnormal (704248641) Abnormal findings on diagnostic imaging of other specified body structures (R93.89) Inactive confirmed Problem Mechanical breakdown of cardiac device (366260292) Breakdown (mechanical) of cardiac pulse generator (battery), initial encounter (T82.111A) Inactive confirmed Problem Electrocardiogram abnormal (621794678) Abnormal electrocardiogram [ECG] [EKG] (R94.31) Inactive confirmed Problem Blood chemistry abnormal (877184342) Other specified abnormal findings of blood chemistry (R79.89) Inactive confirmed Problem Body mass index 30.00 to 34.99 (745510734539675) Body mass index (BMI) 32.0-32.9, adult (Z68.32) Active confirmed Problem Pre-procedure evaluation check (675753331) Encounter for other preprocedural examination (Z01.818) Active confirmed Vital Signs Heart Rate 58 /min 05/28/2024 Temperature 96.9 degrees Fahrenheit 05/28/2024 Respiratory Rate 20 /min 05/28/2024 Blood pressure diastolic 70 mm Hg 05/28/2024 Height-cm 150.5 cm 05/28/2024 Oximetry 98 % 05/28/2024 Weight-kg 73.03 kg 05/28/2024 Height 59.25 in 05/28/2024 Blood pressure systolic 124 mm Hg 05/28/2024 Weight 161.0 lbs 05/28/2024 BMI 32.24 kg/m2 05/28/2024 Procedures Procedure Date Ordered Date Performed Result Body Sit e ESOPHAGOGASTRODUODENOSCOPY 07/08/2024 07/08/2024 N/A Encounters Encounter Location Date Provider Diagnosis [address] [address] 02/20/2024 Dr. Aliza Aviles [address] [address] 03/03/2024 Dr. Aliza Aviles [address] [address] 03/24/2024 Dr. Aliza Aviles [address] [address] 04/19/2024 Dr. Aliza Aviles [address] [address] 04/28/2024 Dr. Aliza Aviles Esophageal dysmotility K22.4 ; Diverticulum of esophagus, acquired K22.5 and Cough, unspecified R05.[address] [address] 05/18/2024 Dr. Aliza Aviles Type 2 diabetes mellitus with hyperglycemia E11.65 ; Hypothyroidism, unspecified E03.9 ; Hyperlipidemia, unspecified E78.5 ; Essential (primary) hypertension I10 ; Gastro-esophageal reflux disease without esophagitis K21.9 and Heart failure, unspecified I50.[address] [address] 05/29/2024 Dr. Aliza Aviles Heart failure, unspecified I50.9 and Chronic kidney disease, stage 3 unspecified N18.[address] [address] 06/11/2024 Dr. Aliza Aviles [address] [address] 06/11/2024 Dr. Aliza Aviles [address] [address] 06/15/2024 Dr. Aliza Aviles [address] [address] 06/18/2024 Dr. Aliza Aviles Heart failure, unspecified I50.9 and Chronic kidney disease, stage 3 unspecified N18.[address] [address] 10/06/2023 Rupal Beckert COVID-19 U07.1 and Cough, unspecified R05.[address] [address] 01/08/2024 Dr. Aliza Aviles Anxiety disorder, unspecified F41.9 ; Cough, unspecified R05.9 and Congenital diverticulum of esophagus Q39.[address] [address] 10/16/2023 Provider Migration Heart failure, unspecified I50.9 and Chronic kidney disease, stage 3 unspecified N18.[address] [address] 10/30/2023 Provider Migration Cough, unspecified R05.9 ; Heart failure, unspecified I50.9 and Chronic kidney disease, stage 3 unspecified N18.[address] [address] 12/02/2023 Provider Migration Heart failure, unspecified I50.9 and Hypothyroidism, unspecified E03.[address] [address] 09/15/2023 Provider Migration Heart failure, unspecified I50.9 [facility] [address] [place] [address] 10/01/2023 Provider Migration Heart failure, unspecified I50.9 [facility] [address] [place] [address] 11/07/2023 Kiel Camille Fracture of unspecif ied parts of lumbosacral spine and pelvis, initial encounter for closed fracture S32.9XXA ; Mild persistent asthma with (acute) exacerbation J45.31 ; Type 2 diabetes mellitus with hyperglycemia E11.65 ; Cough, unspecified R05.9 ; Dizziness and giddiness R42 ; Encounter for screening for COVID-19 Z11.52 ; 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 ; Unspecified abdominal pain R10.9 ; Fracture of manubrium, initial encounter for closed fracture S22.21XA ; Unspecified atrial fibrillation I48.91 ; Rheumatoid arthritis, unspecified M06.9 ; Major depressive disorder, single episode, moderate F32.1 ; Other specified symptoms and signs involving the circulatory and respiratory systems R09.89 ; Constipation, unspecified K59.00 ; Conjunctival hemorrhage, right eye H11.31 ; Congenital malformation of respiratory system, 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 ; Abnormal findings on diagnostic imaging of other parts of digestive tract R93.3 ; Abnormal electrocardiogram [ECG] [EKG] R94.31 ; Encounter for general adult medical examination without abnormal findings Z00.00 ; Unspecified symptoms and signs involving the musculoskeletal system R29.91 ; Unspecified rotator cuff tear or rupture of right shoulder, not specified as traumatic M75.101 ; Pain in left shoulder M25.512 ; Strain of muscle, fascia and tendon of triceps, unspecified arm, initial encounter S46.319A ; Pleurodynia R07.81 ; Chronic kidney disease, stage 3 unspecified N18.30 ; COVID-19 U07.1 ; Pneumonia, unspecified organism J18.9 ; Acute pharyngitis, unspecified J02.9 ; Body mass index (BMI) 32.0-32.9, adult Z68.32 ; Pain in right shoulder M25.511 ; Pain in right arm M79.601 ; Breakdown (mechanical) of cardiac pulse generator (battery), initial encounter T82.111A ; Unspecified fall, initial encounter W19.XXXA ; Heart failure, unspecified I50.9 ; Abdominal aortic aneurysm, without rupture I71.4 ; Other specified abnormal findings of blood chemistry R79.89 ; Repeated falls R29.6 ; Unspecified abnormalities of gait and mobility R26.9 ; Zoster without complications B02.9 ; Abnormal findings on diagnostic imaging of other specified body structures R93.89 and Pain in left arm M79.602 [place] [address] 01/17/2024 [place] [address]/18/2024 [place] [address]/01/2024 Dr. Aliza Aviles Chronic cough R05.3 ; Hypothyroidism, unspecified E03.9 ; Essential (primary) hypertension I10 ; Decreased white blood cell count, unspecified D72.819 ; Hyperglycemia R73.9 ; Wheezing R06.2 ; Chronic kidney disease, stage 3 unspecified N18.30 ; Chronic diastolic heart failure I50.32 ; Paroxysmal atrial fibrillation I48.0 ; Major depressive disorder, single episode, moderate F32.1 and Strain of neck muscle, initial encounter S16.1XXA [place] [address] 03/17/2024 Dr. Aliza Aviles Anxiety disorder, unspecified F41.9 ; Hypothyroidism, unspecified E03.9 ; Cough, unspecified R05.9 ; Other fatigue R53.83 ; Heart failure, unspecified I50.9 ; Abnormal chest CT R93.89 ; Pleural effusion J90 ; Abnormal chest sounds R09.89 and Pacemaker Z95.[address] [address] 04/01/2024 Dr. Aliza Aviles Essential (primary) hypertension I10 ; Unspecified atrial fibrillation I48.91 ; Heart failure, unspecified I50.9 ; Esophageal dysmotility K22.4 ; Aneurysm of ascending aorta without rupture I71.21 ; Shortness of breath R06.02 and Chronic cough R05.3 [place] [address] 05/28/2024 Dr. Aliza Aviles Hyperlipidemia, unspecified E78.5 ; Other fatigue R53.83 ; Vitamin B12 deficiency E53.8 ; Unspecified atrial fibrillation I48.91 ; Diverticulum of esophagus, acquired K22.5 ; Cough, unspecified R05.9 and Heart failure, unspecified I50.[address] [address] 12/10/2023 Dr. Aliza Aviles Encounter for immunization Z23 ; Congenital diverticulum of esophagus Q39.6 ; Encounter for other preprocedural examination Z01.818 ; Gastro-esophageal reflux disease without esophagitis K21.9 ; Heart failure, unspecified I50.9 ; Decreased white blood cell count, unspecified D72.819 ; Hypothyroidism, unspecified E03.9 ; Wheezing R06.2 ; Unspecified atrial fibrillation I48.91 and Presence of cardiac pacemaker Z95.0 Assessments Encounter Date Diagnosis (ICD Code) Assessment Notes Treatment Notes Treatment Clinical Notes Section Notes 05/18/2024 Type 2 diabetes mellitus with hyperglycemia (ICD-10 - E11.65) 04/28/2024 Diverticulum of esophagus, acquired (ICD-10 - K22.5) 04/28/2024 Esophageal dysmotility (ICD-10 - K22.4) 05/28/2024 Hyperlipidemia, unspecified (ICD-10 - E78.5) 03/01/2024 Hypothyroidism, unspecified (ICD-10 - E03.9) check labs 03/01/2024 Chronic cough (ICD-10 - R05.3) 03/17/2024 Hypothyroidism, unspecified (ICD-10 - E03.9) 03/17/2024 Anxiety disorder, unspecified (ICD-10 - F41.9) 12/10/2023 Decreased white blood cell count, unspecified (ICD-10 - D72.819) 12/10/2023 Hypothyroidism, unspecified (ICD-10 - E03.9) 12/10/2023 Unspecified atrial fibrillation (ICD-10 - I48.91) 12/10/2023 Heart failure, unspecified (ICD-10 - I50.9) 12/10/2023 Gastro-esophageal reflux disease without esophagitis (ICD-10 - K21.9) 12/10/2023 Congenital diverticulum of esophagus (ICD-10 - Q39.6) 12/10/2023 Wheezing (ICD-10 - R06.2) 12/10/2023 Encounter for other preprocedural examination (ICD-10 - Z01.818) 12/10/2023 Encounter for immunization (ICD-10 - Z23) 12/10/2023 Presence of cardiac pacemaker (ICD-10 - Z95.0) 01/08/2024 Anxiety disorder, unspecified (ICD-10 - F41.9) 01/08/2024 Congenital diverticulum of esophagus (ICD-10 - Q39.6) 01/08/2024 Cough, unspecified (ICD-10 - R05.9) 12/02/2023 Hypothyroidism, unspecified (ICD-10 - E03.9) 12/02/2023 Heart failure, unspecified (ICD-10 - I50.9) 10/30/2023 Heart failure, unspecified (ICD-10 - I50.9) 10/30/2023 Chronic kidney disease, stage 3 unspecified (ICD-10 - N18.30) 10/30/2023 Cough, unspecified (ICD-10 - R05.9) 10/16/2023 Heart failure, unspecified (ICD-10 - I50.9) 10/16/2023 Chronic kidney disease, stage 3 unspecified (ICD-10 - N18.30) 10/06/2023 COVID-19 (ICD-10 - U07.1) 10/06/2023 Cough, unspecified (ICD-10 - R05.9) 10/01/2023 Heart failure, unspecified (ICD-10 - I50.9) 09/15/2023 Heart failure, unspecified (ICD-10 - I50.9) 11/07/2023 Zoster without complications (ICD-10 - B02.9) 11/07/2023 Type 2 diabetes mellitus with hyperglycemia (ICD-10 - E11.65) 11/07/2023 Major depressive disorder, single episode, moderate (ICD-10 - F32.1) 11/07/2023 Conjunctival hemorrhage, right eye (ICD-10 - H11.31) 11/07/2023 Unspecified atrial fibrillation (ICD-10 - I48.91) 11/07/2023 Heart failure, unspecified (ICD-10 - I50.9) 11/07/2023 Abdominal aortic aneurysm, without rupture (ICD-10 - I71.4) 11/07/2023 Acute pharyngitis, unspecified (ICD-10 - J02.9) 11/07/2023 Pneumonia, unspecified organism (ICD-10 - J18.9) 11/07/2023 Mild persistent asthma with (acute) exacerbation (ICD-10 - J45.31) 11/07/2023 Constipation, unspecified (ICD-10 - K59.00) 11/07/2023 Rheumatoid arthritis, unspecified (ICD-10 - M06.9) 11/07/2023 Pain in right shoulder (ICD-10 - M25.511) 11/07/2023 Pain in left shoulder (ICD-10 - M25.512) 11/07/2023 Unspecified rotator cuff tear or rupture of right shoulder, not specified as traumatic (ICD-10 - M75.101) 11/07/2023 Pain in right arm (ICD-10 - M79.601) 11/07/2023 Pain in left arm (ICD-10 - M79.602) 11/07/2023 Other congenital malformations of trachea (ICD-10 - 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) 11/07/2023 Congenital malformation of respiratory system, unspecified (ICD-10 - Q34.9) 11/07/2023 Pleurodynia (ICD-10 - R07.81) 11/07/2023 Other specified symptoms and signs involving the circulatory and respiratory systems (ICD-10 - R09.89) 11/07/2023 Unspecified abdominal pain (ICD-10 - R10.9) 11/07/2023 Unspecified abnormalities of gait and mobility (ICD-10 - R26.9) 11/07/2023 Repeated falls (ICD-10 - R29.6) 11/07/2023 Unspecified symptoms and signs involving the musculoskeletal system (ICD-10 - R29.91) 11/07/2023 Dizziness and giddiness (ICD-10 - R42) 11/07/2023 Other specified abnormal findings of blood chemistry (ICD-10 - R79.89) 11/07/2023 Abnormal findings on diagnostic imaging of other parts of digestive tract (ICD-10 - R93.3) 11/07/2023 Abnormal electrocardiogram [ECG] [EKG] (ICD-10 - R94.31) 11/07/2023 Fracture of manubrium, initial encounter for closed fracture (ICD-10 - S22.21XA) 11/07/2023 Fracture of unspecified parts of lumbosacral spine and pelvis, initial encounter for closed fracture (ICD-10 - S32.9XXA) 11/07/2023 Strain of muscle, fascia and tendon of triceps, unspecified arm, initial encounter (ICD-10 - S46.319A) 11/07/2023 Breakdown (mechanical) of cardiac pulse generator (battery), initial encounter (ICD-10 - T82.111A) 11/07/2023 Encounter for general adult medical examination without abnormal findings (ICD-10 - Z00.00) 11/07/2023 Unspecified fall, initial encounter (ICD9-CM - W19.XXXA) 11/07/2023 Abnormal findings on diagnostic imaging of other specified body structures (ICD-10 - R93.89) 11/07/2023 COVID-19 (ICD-10 - U07.1) 11/07/2023 Chronic kidney disease, stage 3 unspecified (ICD-10 - N18.30) 11/07/2023 Encounter for screening for COVID-19 (ICD-10 - Z11.52) 11/07/2023 Cough, unspecified (ICD-10 - R05.9) 11/07/2023 Body mass index (BMI) 32.0-32.9, adult (ICD-10 - Z68.32) 06/18/2024 Heart failure, unspecified (ICD-10 - I50.9) 05/29/2024 Heart failure, unspecified (ICD-10 - I50.9) 05/18/2024 Hypothyroidism, unspecified (ICD-10 - E03.9) 04/01/2024 Essential (primary) hypertension (ICD-10 - I10) 41 mins spent face to face and reviewing results with patient. 04/01/2024 Unspecified atrial fibrillation (ICD-10 - I48.91) Continue xarelto 04/01/2024 Heart failure, unspecified (ICD-10 - I50.9) 05/29/2024 Chronic kidney disease, stage 3 unspecified (ICD-10 - N18.30) 06/18/2024 Chronic kidney disease, stage 3 unspecified (ICD-10 - N18.30) 03/17/2024 Cough, unspecified (ICD-10 - R05.9) 03/01/2024 Essential (primary) hypertension (ICD-10 - I10) continue medication, Rec checking BP at home, check labs today. 04/28/2024 Cough, unspecified (ICD-10 - R05.9) microaspiration 05/18/2024 Hyperlipidemia, unspecified (ICD-10 - E78.5) 05/28/2024 Other fatigue (ICD-10 - R53.83) 05/28/2024 Vitamin B12 deficiency (ICD-10 - E53.8) 05/18/2024 Essential (primary) hypertension (ICD-10 - I10) 03/17/2024 Other fatigue (ICD-10 - R53.83) 03/01/2024 Decreased white blood cell count, unspecified (ICD-10 - D72.819) check labs 04/01/2024 Esophageal dysmotility (ICD-10 - K22.4) 04/01/2024 Aneurysm of ascending aorta without rupture (ICD-10 - I71.21) BP control essential. 05/18/2024 Gastro-esophageal reflux disease without esophagitis (ICD-10 - K21.9) 03/17/2024 Heart failure, unspecified (ICD-10 - I50.9) 03/01/2024 Hyperglycemia (ICD-10 - R73.9) red diet modification 05/28/2024 Unspecified atrial fibrillation (ICD-10 - I48.91) 36 mins spent face to face with additional 5 mins spent reviewing labs recently done and consultations since last visit. 03/17/[address] (ICD-10 - R93.89) 05/18/2024 Heart failure, unspecified (ICD-10 - I50.9) 05/28/2024 Diverticulum of esophagus, acquired (ICD-10 - K22.5) 05/28/2024 Cough, unspecified (ICD-10 - R05.9) 03/01/2024 Wheezing (ICD-10 - R06.2) do sputum culture and CT chest. ? related to CHF vs microaspiration from esophageal diverticulum,howev er, s/p surgery. 04/01/2024 Shortness of breath (ICD-10 - R06.02) 04/01/2024 Chronic cough (ICD-10 - R05.3) 03/01/2024 Chronic kidney disease, stage 3 unspecified (ICD-10 - N18.30) checking labs today. 03/17/2024 Pleural effusion (ICD-10 - J90) 05/28/2024 Heart failure, unspecified (ICD-10 - I50.9) 03/17/2024 Abnormal chest sounds (ICD-10 - R09.89) 03/01/2024 Chronic diastolic heart failure (ICD-10 - I50.32) BNP, check labs, on torsemide, consider increase in meds if needed. 03/01/2024 Paroxysmal atrial fibrillation (ICD-10 - I48.0) continue xarelto. 03/17/2024 Pacemaker (ICD-10 - Z95.0) 03/01/2024 Major depressive disorder, single episode, moderate (ICD-10 - F32.1) continue SSRI. Tired after surgery but she doesn't feel ti's mood related. 03/01/2024 Strain of neck muscle, initial encounter (ICD-10 - S16.1XXA) right neck is sore with tight muscle. Rec heating pad, gentle massage. 03/01/2024 Other Labs today Energy level is still low - if labs and CT aren't revealing. Persistent Cough and Wheezing: - Likely related to asthma, possible fluid buildup, or mucus plugging. Potential causes include acid reflux or vocal cord issues. Previous tests indicated mild asthma. - Order a CAT scan to rule out pneumonia and assess lung nodule stability. Collect sputum sample for culture to identify bacteria. Evaluate BNP levels to assess heart function and fluid retention. - Consider the possibility of small bits of fluid causing mucus plugging, which could lead to intermittent wheezing. Rule out infection better than a chest x-ray would. Hoarseness and Voice Loss: - Likely related to the same underlying cause as cough and wheezing. Unlikely to be related to surgery or recurrent laryngeal nerve damage. - Await results from swallowing test and CAT scan. Consider further evaluation of vocal cords if necessary. - Consider the possibility of acid reflux causing inflammation and swelling of the vocal cords, leading to hoarseness. Right Ear Pain: - Likely due to radiculopathy from a tight neck muscle. - Use a heating pad and perform gentle stretching. Consider muscle relaxers or therapy if needed. - Consider seeing a chiropractor, massage therapist, or physical therapist for further management. Lung Nodule: - Stable left lower lung nodule, previously unchanged. - Follow-up with a CAT scan to ensure stability. Energy Levels: - Energy levels have improved post-surgery but remain lower than desired. - Conduct lab tests to check thyroid function and other potential causes. Monitor for any infection in the chest. - Consider the possibility of an infection in the chest affecting energy levels and the need to monitor lab results. Blood Profile and BNP Levels: - BNP levels have been elevated before, indicating potential heart-related issues. - Include BNP in the blood profile to assess heart function and fluid retention. Appointments - Upper GI test scheduled for tomorrow. - Follow-up CAT scan to be done this week at [place]. 05/28/2024 Other Chronic Cough and Suspected Gastrointestinal Issue: - Likely related to gastrointestinal issues, possibly due to acid reflux causing esophageal irritation. Potential neuromuscular issues with esophageal contractions noted from swallowing test. - Scheduled for a GI evaluation on June 18, 2024. In the meantime, recommend chewing 2 Tums 3 times a day with meals to help constrict the muscle and keep acid down. Consider increasing Prilosec dosage short-term if needed. - Monitor for any improvement in cough and report back. Atrial Fibrillation and Fluid Retention: - Elevated BNP levels suggest fluid retention possibly related to atrial fibrillation. Weight gain of 9 lbs since February indicates possible water retention. - Temporarily increase torsemide to three tablets daily and potassium to three tablets daily through the weekend. Monitor weight daily and report on Friday or Friday. Consider re-evaluation of spironolactone which was D/C due to high potassium levels in the past. - Assess for any changes in symptoms such as breathing difficulties or increased edema. Fatigue and Low Energy: - Fatigue not likely due to infection as white blood cell count is low, not high. Low white blood cell count is consistent with past results and not indicative of a serious issue most likely. - Administer B12 shot of 1000 mcg. Draw blood for B12 and magnesium levels before administration. Monitor energy levels and report improvement. - Evaluate for any potential underlying causes of fatigue if symptoms persist. Thyroid Function: - TSH slightly low, but free hormone levels are normal. No immediate changes recommended. - Monitor thyroid function and recheck if necessary. Consider potential lab error if TSH remains slightly low. Incorrect Diabetes Diagnosis: - No evidence of diabetes; previous chart error corrected. - Remove diabetes diagnosis from chart. Ensure accurate documentation in future records. 03/17/2024 Other Assessment & Plan Chronic Cough and Fluid Overload - Cough likely due to fluid overload from heart failure, possibly exacerbated by atrial fibrillation hx, HAS pacemaker. Potential micro aspiration from esophageal issues post-surgery. CT scan showed fluid in the left lung, no infection or nodules. - Continue increased diuretic dosage. Blood work to monitor heart failure markers. Consider referral to a audio visual design engineer for further evaluation. Order echocardiogram before the cardiology appointment on April 07. Consider high-resolution CT scan for detailed lung assessment. - Check inflammation markers for conditions like rheumatoid arthritis. Tuberculosis Concern - Low likelihood of active TB as CT scan showed no nodules. Possible latent TB, but not causing current symptoms. - Offer TB blood test for peace of mind. Heart Failure and Atrial Fibrillation - History of atrial fibrillation with pacemaker. Fluid overload contributing to symptoms. - Monitor heart failure markers with blood work. Echocardiogram to assess heart function. Swelling in Legs - Persistent swelling in legs, possibly related to fluid overload vs lipedema - Monitor with ongoing treatment and follow-up. Prescription - Increased diuretic (water pill) to three pills daily for three days to manage fluid overload and improve cough and energy levels. Appointments - Follow-up appointment in 1-2 weeks to review test results and monitor progress. - Appointment with heart doctor's assistant accounting manager on April 07, next month. - Echocardiogram to be done prior to the heart doctor's appointment. - Consideration for a pulmonology referral to a different specialist in [place] or [place]. 04/01/2024 Other Cough, Wheezing, and Dyspnea - Symptoms may be due to fluid overload from heart failure and possible microaspiration due to esophageal issues VS possible TE fistula or other similar pathology. CT showed fluid in the lung. Esophageal motility issues and a small nodule in the esophagus may contribute to symptoms if aspiration driven. - Increase diuretic dosage to manage fluid overload. Referral to audio visual design engineer for bronchoscopy to investigate lung issues. Follow-up with cardiology and pulmonology. Consider the possibility of aspiration contributing to lung symptoms. Consider High Resoluton CT chest. Esophageal Abnormality - Modified barium swallow showed a small abnormality in the distal esophagus, possibly a muscle spasm or nodule. Esophageal motility is limited, with material remaining after swallowing. - Follow-up with esophagus specialist via [facility] on April 14, 2024. Consider further evaluation for esophageal motility issues. The presence of a diverticulum and esophageal spasm may require additional investigation. -Checking for Scleroderma or CREST syndrome. - Negative results for rheumatoid arthritis, TERRANCE, and anti-CCP antibodies. Possible esophageal dysmotility related to autoimmune condition like scleroderma or CREST syndrome. - Order anticrest antibody test to evaluate for autoimmune conditions affecting esophageal motility. Consider further testing if symptoms persist or worsen. Aortic Aneurysm - Aortic aneurysm measured at 4.8 cm, slightly increased from previous measurements. - Continue monitoring with echocardiograms. Discuss potential treatment options with cardiology if aneurysm size increases. Control blood pressure to prevent further enlargement. Plan Of Treatment Pending Test Test Name Order Date CBC With Differential/Platelet Sedimentation Rate-Westergren 03/17/2024 Rheumatoid Arthritis Factor 03/17/2024 B-Type Natriuretic Peptide 03/17/2024 CCP IgG Antibodies 03/17/2024 TERRANCE Comprehensive Panel 03/17/2024 Comp. Metabolic Panel (14) 03/17/2024 Comp. Metabolic Panel (14) 04/01/2024 Quantiferon Gold 03/17/2024 proBrain Natriuretic Peptide NT-ARUP 02/2024 Scleroderma {Scl-70} {TARSHA} Ab, IgG-ARUP 04/01/2024 Centromere Antibody, IgG-ARUP 04/01/2024 Hemoglobin A1c {Glycosylated} 05/18/2024 B-Type Natriuretic Peptide 04/01/2024 T4 Free 05/18/2024 CBC w Auto Diff 05/18/2024 Comprehensive Metabolic Panel 05/18/2024 Lipid Panel {Chol, Trig, HDL, LDL} 05/18 Magnesium 05/18/2024 Thyroid Stimulating Hormone 05/18/2024 Future Test Test Name Order Date B-Type Natriuretic Peptide 07/30/2024 Basic Metabolic Panel (8) 07/30/2024 Next Appt Details Provider Name:Dr. Aliza murguia, 11/03/2024 11:00:00 AM, [address] [place], [address], [phone] Insurance Providers Payer Name Payer Address Payer Phone Subscriber Number Group Number Insured Name Patient Relationship to Insured Coverage Start Date Coverage End Date NGS Medicare RHC [address] [place] [phone] [id number] Porsha Bean Self - patient is the insured [address] [place] [address] [id number] Plan F Porsha Bean Self - patient is the insured 2 [employer] [address] [address] [place] [address] [id number] Porsha Bean Self - patient is the insured Medications Administered Medication Instructions Date of Administration Dosage Notes B12 05/28/2024 1000 ug Medical (General) History Medical History History ICD Code Decreased white blood cell count, unspec ified D72.819 Hypothyroidism, unspecified E03.9 Type 2 diabetes mellitus with hyperglyce brian E11.65 Hyperlipidemia, unspecified E78.5 Major depressive disorder, single episod e, moderate F32.1 Anxiety disorder, unspecified F41.9 Essential (primary) hypertension I10 Atrioventricular block, complete I44.2 Unspecified atrial fibrillation I48.91 Heart failure, unspecified I50.9 Abdominal aortic aneurysm, without ruptu re I71.4 Peripheral vascular disease, unspecified I73.9 Gastro-esophageal reflux disease without esophagitis K21.9 Rheumatoid arthritis, unspecified M06.9 Unspecified osteoarthritis, unspecified site M19.90 Age-related osteoporosis without current pathological fracture 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 Q39 .6 Solitary pulmonary nodule R91.1 Chronic kidney disease, stage 3 unspecif ied N18.30 Aneurysm of the ascending aorta, without rupture I71.21 Pleurodynia R07.81 Hyperkalemia E87.5 Major depressive disorder, single episod e, unspecified F32.9 Pleural plaque without asbestos J92.9 Other specified pleural conditions J94.8 Other seborrheic keratosis L82.1 Other specified epidermal thickening L85 .8 Unequal limb length (acquired), unspecif ied site M21.70 Dorsalgia, unspecified 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 5 Surgical History Surgery Date(Month/Year) cholecystectomy ,notes : 2002 foot surgery ,notes : 2011 l eft foot, bunionectomy and reconstruction (45459) STOMACH SURGERY PROC EDURE ,notes : 1965 invasive twisted colon throat surgery ,notes : cric opharyngeus muscle surgery by otolarnygology 01/01/24 Cardiac Ablation ,notes : 2013 & 2017 colonoscopy ,notes : 2002 2010 diverticu litis 2011 celiac disease EGD ,notes : 2002 2010 EGD 2 012 celiac disease. 04/2015 Ashleigh; 4 constuctive surgeries 2000 Cataract removal ,notes : 2009 hysterectomy ,notes : uterus only, invas zac 1971 Pacemaker implantation ,notes : 2021 (40567) EXPLORATION BEHIND ABDOMEN ,note s : 1981 scar tissue (65883) DOPPLER ECHO EXAM HE ART ,notes : AAA is present Echocardiogram 04/29/2019- EF 55-60%. Acesnding aorta 4.4 cm. Mild moderate aortic regurgitation. Mild TR (32028) ANESTH NOSE/SINUS SURGERY ,notes : 1991 and 1992 shoulder surgery ,notes : dr hennessy/inject large joint/bursa in R. Shoulder 04/03/2023 Loop Recorder 10/2020
--- OUTSIDE RECORDS SUMMARY | 2024-08-03 16:04 | XMS_ITS | Encounter Summary ---
Author Organization [facility] Address [address] [place] [address] Phone Care Team Providers Care Otolaryngologist Name Role Phone Aliza Aviles MD Primary Care Provider Referral, Self Unavailable Unavailable William Naranjo MD Unavailable [phone] Encounter Details Date Type Department Care Team (Late st Contact Info) Description 12/31/2023 Orders Only [facility] Scanning, Provider Social History Tobacco Use Types Packs/Day Years Used Date Smoking Tobacco: Never Smokeless Tobacco: Never Comments Unknown Sex and Gender Information Value Date Recorded Sex Assigned at Not on file Legal Sex Female 10:34 PM INTAKE 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
--- OUTSIDE RECORDS SUMMARY | 2024-08-03 16:04 | XMS_ITS | Referral Summary ---
Author Organization [facility] Address [address] [place] [address] Care Team Providers Care Photonic Laboratory Technician Name Role Phone Aliza Aviles MD Primary Care Provider Referral, Self Unavailable Unavailable William Naranjo MD Unavailable [phone] Encounters Date Type Department Care Team Description 07/09/2024 Results Follow-Up [facility] [address] [facility] [address] [place] [address] [place] [address] Yolette Jenkins MD Surgical pathology 07/08/2024 9:04 AM CDT Anesthesia Event [facility] [address] [place] [phone] Deandre Pat MD 07/08/2024 9:00 AM CDT - 07/08/2024 9:30 AM CDT Surgery [facility] [address] [place] [phone] Yolette Jenkins MD ESOPHAGOGASTRODUODENOSCOPY ESOPHAGEAL GUIDE WIRE 07/08/2024 7:37 AM CDT - 07/08/2024 10:24 AM CDT Hospital Encounter [facility] [address] [place] [phone] Yolette Jenkins MD Gastroesophageal reflux disease, unspecified whether esophagitis present; Celiac disease Discharge Disposition: Discharge to home or self care 07/01/2024 Telephone [facility] [address] [facility] [address] [place] [address] [place] [address] Rupal Henderson LPN 07/01/2024 8:14 AM CDT - 07/01/2024 11:59 PM CDT Hospital Encounter [facility] ([facility]) [address] [place] [address] Discharge Disposition: Discharge to home or self care 07/01/2024 8:13 AM CDT - 07/01/2024 11:59 PM CDT Hospital Encounter [facility] ([facility]) [address] [place] [address] Discharge Disposition: Discharge to home or self care 07/01/2024 8:11 AM CDT - 07/01/2024 11:59 PM CDT Hospital Encounter [facility] ([facility]) [address] [place] [address] Discharge Disposition: Discharge to home or self care 06/30/2024 Telephone [facility] [address] [facility] [address] [place] [address] [place] [address] Rupal Henderson LPN Cardiac Clearance + Xarelto Hold 06/28/2024 Results Follow-Up [facility] [address] [facility] [address] [place] [address] [place] [address] Yolette Jenkins MD High Resolution Esophageal Manometric Study - 06/21/2024 1:20 PM CDT - 06/21/2024 11:59 PM CDT Hospital Encounter [facility] [address] [place] [phone] Esophageal dysmotility; Esophageal dysphagia Discharge Disposition: Discharge to home or self care 06/17/[address] [facility] [address] [place] [phone] Rae Gilmore RN 06/17/[address] [facility] [address] [place] [phone] Rae Gilmore RN 06/17/2024 Orders Only [facility] [address] [place] [address] [address] [place] [phone] Yazmin Martínez LPN Esophageal dysmotility (Primary Dx); Esophageal dysphagia 06/09/2024 Telephone [facility] [address] [place] [address] Medical [address] [place] [phone] Yazmin Martínez LPN Esophageal Manometry 06/09/2024 Orders Only [facility] [address] [place] [address] Medical [address] [place] [address] Yazmin Martínez LPN Esophageal dysmotility (Primary Dx); Esophageal dysphagia; Esophageal diverticulum 06/02/2024 1:15 PM CDT Office Visit [facility] [address] [facility] [address] [place] [address] [place] [address] Yolette Jenkins MD Esophageal dysmotility (Primary Dx); Esophageal dysphagia; Esophageal diverticulum from Last 3 Months Allergies Active Allergy Reactions Criticality Noted Date Comments Atorvastatin Headache Low 11/30/2015 Chicken Headache Low 05/25/2020 Codeine Iodinated Contrast Media Shortness of breath,Itching High 07/18/2014 Noted at [facility] Epinephrine Flecainide Other (See comments) Low [...] daily for 21 days 21 tablet 07/09/2024 07/31/19 25 Active Problems Problem Noted Date Diagnosed Date Dyslipidemia 10/17/2020 GERD (gastroesophageal reflux disease) Hypercholesteremia 10/17/2020 SOB (shortness of breath) 10/17/2020 Hip pain, chronic, right 05/26/2020 Localized edema 07/05/2019 retirement current use of anticoagulant therapy 0 07/18/2017 [...] on file Legal Sex Female 10:34 PM 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 SERVICES 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 Gender Identity Not on file Sexual Orientation [...] on file Medical Devices Implanted Type Area Gas Line Repairer Device Identifier Shelf Expiration Date Model / Serial / Lot Pacemaker Micra Pacemaker Chest Wall [employer] [id number] / / Procedures Procedure Name Priority Date/Time [...] biopsy) 07/08/2024 9:18 AM CDT Narrative PATHOLOGY [facility] - 07/09/2024 1:29 PM CDT [address] [address] Tele: Charisma Painting MD - Recycling Assistant Note to Patients: This report may contain [...] PATHOLOGY REPORT Patient Name: JULIANNE GILBERT Address: [address] [place] [address] Gender: F : 1945 (Age: 78) Service: Gastro Location: [facility], Hospital #: [id number] Patient Type: [facility] SAME [place] SURGERY Taken: [...] rule out Pascale: - Pascale esophagitis [facility]/07/09/2024 13:29 Examining Pathologist: Alex Barraza M.D. [...] all labeled with the patient's name JULIANNE WOLF A. The first container is additionally labeled [...] filtered and submitted entirely in cassette C1. [facility]/07/08/2024 13:08 ,[facility] MICROSCOPIC DESCRIPTION: Sections of [...] infiltrative fungal forms. Clerical Data Follows A; 88309, 13998 B; 32045, 62724 C; 81632, 03754 REPORT IMAGES AND/OR SCANNED DOCUMENTS ONLY VIEWABLE IN PDF FORMAT The immunohistochemical test(s) cited in this report, if any, was developed and its performance characteristics determined by [facility] Pathology Department. It has not been cleared or approved by the U.S. Food and Drug Administration. The FDA has determined that such clearance or approval is not necessary. This test is used for clinical purposes. It should not be regarded as investigational or for research. [facility] Laboratory is certified under the Clinical Laboratory [...] completely in the following laboratories: [facility], [address] [place] [address], [address] [place] [address]. Yolette Jenkins MD LAB PATHOLOGY ORDERABLES Final Result PATHOLOGY [facility] Laboratory Receiving [address] [place] [address] * EGD (07/08/2024 7:50 AM CDT) Anatomical Region Laterality Modality Other Narrative Procedure Note Yolette Jenkins MD - 07/08/2024 7:50 AM CDT ENDOSCOPY LAB Patient Name: Julianne Gilbert Procedure Date: 07/08/2024 7:50 AM Admit Type: Outpatient Room: [facility] Date of : 1945 Instrument Name: [...] Outside Reference (07/01/2024 8:14 AM CDT) Impressions RAD_PACS[facility] - 07/01/2024 8:14 AM CDT These images are for Reference purposes only and have not been reviewed by [facility] Radiology. There will be no report generated by a [facility] Radiologist. Narrative RAD_PACS_[facility] - 07/01/2024 8:14 AM CDT EXAMINATION: Images For Reference Purposes Only Yolette Jenkins MD IMG XR PROCEDURES Final R esult Performing Organization Address [facility] de Phone Number [email or web address] * XR Outside Reference (07/01/2024 8:13 AM CDT) Impressions [facility] - 07/01/2024 8:13 AM CDT These images are for Reference purposes only and have not been reviewed by [facility]iology. There will be no report generated by a [facility] Radiologist. Narrative [facility] - 07/01/2024 8:13 AM CDT EXAMINATION: Images For Reference Purposes Only Yolette Jenkins MD IMG XR PROCEDURES Final R esult Performing Organization Address [facility] de Phone Number [email or web address] * XR Outside Reference (07/01/2024 8:11 AM CDT) Impressions [facility] - 07/01/2024 8:11 AM CDT These images are for Reference purposes only and have not been reviewed by [facility]iology. There will be no report generated by a [facility] Radiologist. Narrative [facility]_P[facility] - 07/01/2024 8:11 AM CDT EXAMINATION: Images For Reference Purposes Only Yolette Jenkins MD IMG XR PROCEDURES Final R esult Performing Organization Address [facility] de Phone Number [email or web address] * High Resolution Esophageal Manometric Study - (06/28/2024 6:56 AM CDT) Anatomical Region Laterality Modality Other Yolette Jenkins MD GI LAB PROCEDURE ORDERABL ES Final Result from Last 3 Months Insurance MEDICARE RAILROAD MEDICARE RAILROAD MEDICARE [employer] [facility] Advance Directives For more information, please contact: [phone] * Full Code (Latest Code Status on File) Date Activated Date Inactivated Comments 07/08/2024 8:02 AM 07/08/2024 2:24 PM Care Teams Photonic Laboratory Technician Relationship Specialty Start Date End Date Aliza Aviles MD [address] [place] [address] PCP - General Family Medicine 05/22/20 Referral, Self 05/22/20 William Naranjo MD Consulting Physician Medical Oncology 05/22/20
--- OUTSIDE RECORDS SUMMARY | 2024-08-03 16:04 | XMS_ITS | Continuity of Care Document ---
Author Organization [facility] Address [address] [facility] [facility] [address] [place] [address] Phone Care Team Providers Care Aircraft Life Support Fitter Name Role Phone Annamaria STEPHENSON, Nicci Unavailable [...] on Encounter OFFICE/OUTPA TIENT VISIT EST R3 [facility] , [address] [place] [address], [place], [place], [id number] , [place] tel:[phone] [facility] Dysphagia, oropharyngeal phasePharyngoesophag eal dysphagia 5 Hoesli Nicci. [address] [place] [address], [address], [place]. tel:[phone] [facility] , [address] [place] [address], [id number] , [place] tel:[phone] [facility] Dysphagia, oropharyngeal phasePharyngoesophag eal dysphagia 5 Hoesli Nicci. [address] [place] [address], [address], [place]. tel:[phone] [facility] , [address] [place] [address], [id number] , [place] tel:[phone] [facility] Zenker's diverticulumDysphagi a, oropharyngeal phase 4 Hoesli Nicci. [address] [place] [address], [address], [place]. tel:[phone] [facility] , [address] [place] [address], [place], [place], [id number] , [place] tel:[phone] [facility] No Information 4 Hoesli Nicci. [address] [place] [address], [place], [address], [place]. tel:[phone] OFFICE/OUTPA TIENT VISIT EST R3 [facility] , [address] [place] [address] Suite [facility], [place], [place], [id number] , [phone] [facility] Pharyngoesophageal dysphagiaZenker's diverticulum 4 Annamaria Grajeda. [address] [place] [address], [address], [place]. [phone] Established patient office or other outpatient visit [facility] , [address] [place] [address], [place], [place], [id number] , [phone] [facility] Pharyngoesophageal dysphagiaZenker's diverticulum 4 Samuel Carrera. [address] [place] [address], [id number] . tel:[phone] Office/Outpa tient Visit [facility] , [address] [place] [address] Suite [facility], [place], [place], [id number] , [phone] [facility] Pharyngoesophageal dysphagiaZenker's diverticulumChronic cough 4 Samuel Carrera. [address] [place] [address], [id number] . [phone] Family History Family Member Type Diagnosis Age At Onset Mother Problem Cancer, breast 67 Mother Problem Hypercholesterolemia Father Problem Hypercholesterolemia Brother Problem Hypercholesterolemia Payers Payer name Insurance type Covered alliance party ID Shiela stephens(s) RR Medicare MB [id number] [place] [facility] [id number] Social History Type Description Quantity Date Captured [...]
--- OUTSIDE RECORDS SUMMARY | 2024-08-03 16:04 | XMS_ITS | Clinical Summary ---
Author Organization [facility] Address Replaced by [facility] [address] [place] [address] Care Team Providers Care Sack Repairer Name Role Phone Aliza Aviles MD Primary Care Provider Referral, Self Unavailable Unavailable William Naranjo MD Unavailable [phone] Allergies Active Allergy Reactions Criticality Noted Date Comments Atorvastatin Headache Low 11/30/2015 Chicken Headache Low 05/25/2020 Codeine Iodinated Contrast Media Shortness of breath,Itching High 07/18/[address] [facility] Epinephrine Flecainide Other (See comments) [...] pain, chronic, right 05/26/2020 Localized edema 07/05/2019 intermediate designer current use of anticoagulant therapy 0 07/18/2017 [...] Department Care Team Description 07/09/2024 Results Follow-Up [facility] Gastroenterolog y [address] [facility] 12th [place] [address] [place] [address] Yolette Jenkins MD Surgical pathology 07/08/2024 9:04 AM CDT Anesthesia Event [facility] [address] [place] [address] [phone] Deandre Pat MD 07/08/2024 9:00 AM CDT - 07/08/2024 9:30 AM CDT Surgery [facility] [address] [place] [address] [phone] Yolette Jenkins MD ESOPHAGOGASTRODUODENOSCOPY ESOPHAGEAL GUIDE WIRE 07/08/2024 7:37 AM CDT - 07/08/2024 10:24 AM CDT Hospital Encounter [facility] [address] [place] [address] [phone] Yolette Jenkins MD Gastroesophageal reflux disease, unspecified whether esophagitis present; Celiac disease Discharge Disposition: Discharge to home or self care 07/01/2024 8:14 AM CDT - 07/01/2024 11:59 PM CDT Hospital Encounter [facility] [address] [place] [address] Discharge Disposition: Discharge to home or self care 07/01/2024 8:13 AM CDT - 07/01/2024 11:59 PM CDT Hospital Encounter [facility] [address] [place] [address] Discharge Disposition: Discharge to home or self care 07/01/2024 8:11 AM CDT - 07/01/2024 11:59 PM CDT Hospital Encounter [facility] [address] [place] [address] Discharge Disposition: Discharge to home or self care 07/01/2024 Telephone [facility]enter[facility] [address] [facility] [address]th [place] [address] [place] [address] Rupal Henderson LPN 06/30/2024 Telephone [facility]enter[facility] [address] [facility] 12th [place] [address] [place] [address] Rupal Henderson LPN Cardiac Clearance + Xarelto Hold 06/28/2024 Results Follow-Up [facility] Gastroenterolog [facility] [address] [facility] 12th [place] [address] [place] [address] Yolette Jenkins MD High Resolution Esophageal Manometric Study - 06/21/2024 1:20 PM CDT - 06/21/2024 11:59 PM CDT Hospital Encounter [facility] [address] [place] [address] [phone] Esophageal dysmotility; Esophageal dysphagia Discharge Disposition: Discharge to home or self care 06/17/2024 Telephone [facility] [address] [place] [phone] Rae Gilmore, FERMÍN 06/17/2024 Telephone [facility] [address] [place] [phone] Rae Gilmore, FERMÍN 06/17/2024 Orders Only [facility]enter[facility] [address] [place] [address] Medical Office Building [address] [place] [phone] Yazmin Martínez LPN Esophageal dysmotility (Primary Dx); Esophageal dysphagia 06/09/2024 Telephone [facility] [address] [facility] Medical Office Building [address] [place] [address] Yazmin Martínez LPN Esophageal Manometry 06/09/2024 Orders Only [facility] [address] [facility] Medical Office Building [address] [place] [address] Yazmin Martínez LPN Esophageal dysmotility (Primary Dx); Esophageal dysphagia; Esophageal diverticulum 06/02/2024 1:15 PM CDT Office Visit [facility] [address] [facility] 12th [place] [address] [place] [address] Yolette Jenkins MD Esophageal dysmotility (Primary Dx); [...] spine Congestive heart failure (CHF) ([facility]) GERD (gastroesophageal reflux disease) Migraines Celiac disease Hypothyroidism HTN (hypertension) Hyperlipidemia CHF (congestive heart failure) ([facility]) Cardiac arrhythmia Anxiety and depression [...] on file Legal Sex Female 10:34 PM PUBLIC HEALTH 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 Gender Identity Not on file Sexual [...] 07/08/2025 07/08/2024 Pneumococcal vaccine 65+ Completed 01/01/2016, 09/2012 Zoster Vaccine Completed 08/18/2018, 04/18, 02/18/2008 Medical Devices Implanted Type Area Hose Suspender Cutter Device Identifier Shelf Expiration Date Model / Serial / Lot Pacemaker Micra Pacemaker Chest Wall [employer] [id number] / / Procedures Procedure Name Priority Date/Time [...] biopsy) 07/08/2024 9:18 AM CDT Narrative PATHOLOGY [facility] - 07/09/2024 1:29 PM CDT [address] [address] Tele: Charisma Painting MD - Continuity Coordinator Note to Patients: This report may [...] PATHOLOGY REPORT Patient Name: JULIANNE GILBERT Address: [address] [place] [address] Gender: F : 1945 (Age: 78) Service: Gastro Location: [facility], Hospital #: [id number] Patient Type: [facility] SURGERY Taken: 07/08/2024 Received 07/08/2024 [...] biopsy rule out Pascale: - Pascale esophagitis [facility]/07/09/2024 13:29 Examining Pathologist: Alex Barraza M.D. Report [...] filtered and submitted entirely in cassette C1. [facility]/07/08/2024 13:08 ,[facility] MICROSCOPIC DESCRIPTION: Sections of the gastric [...] infiltrative fungal forms. Clerical Data Follows A; 68758, 04740 B; 01750, 64102 C; 36020, 70364 REPORT IMAGES AND/OR SCANNED DOCUMENTS ONLY VIEWABLE IN PDF FORMAT The immunohistochemical test(s) cited in this report, if any, was developed and its performance characteristics determined by [facility] Pathology Department. It has not been cleared or approved by the U.S. Food and Drug Administration. The FDA has determined that such clearance or approval is not necessary. This test is used for clinical purposes. It should not be regarded as investigational or for research. [facility] Laboratory is certified under the [...] part or completely in the following laboratories: [facility], [facility], [place] [address] [facility], [address] [place] [address], [place] [address]. Yolette Jenkins MD LAB PATHOLOGY ORDERABLES Final Result PATHOLOGY [facility] Laboratory Receiving [address] [place] [address] * EGD (07/08/2024 7:50 AM CDT) Anatomical Region Laterality Modality Other Narrative Procedure Note Yolette Jenkins MD - 07/08/2024 7:50 AM CDT ENDOSCOPY LAB Patient Name: Julianne Gilbert Procedure Date: 07/08/2024 7:50 AM Admit Type: Outpatient Room: [facility] Date of : 1945 Instrument Name: [...] only and have not been reviewed by [facility]iology. There will be no report generated by a [facility] Radiologist. Narrative [facility] - 07/01/2024 8:14 AM CDT EXAMINATION: Images For Reference Purposes Only Yolette Jenkins MD IMG XR PROCEDURES Final R esult Performing Organization Address [facility] Co de Phone Number [facility] * XR Outside Reference (07/01/2024 8:13 AM CDT) Impressions [facility] - 07/01/2024 8:13 AM CDT These images are for Reference purposes only and have not been reviewed by [facility]. There will be no report generated by a [facility] Radiologist. Narrative [facility] - 07/01/2024 8:13 AM CDT EXAMINATION: Images For Reference Purposes Only Yolette Jenkins MD IMG XR PROCEDURES Final R esult Performing Organization Address City/[facility] Co de Phone Number [email or web address] * XR Outside Reference (07/01/2024 8:11 AM CDT) Impressions [facility] - 07/01/2024 8:11 AM CDT These images are for Reference purposes only and have not been reviewed by [facility]. There will be no report generated by a [facility] Radiologist. Narrative [facility] - 07/01/2024 8:11 AM CDT EXAMINATION: Images For Reference Purposes Only us Yolette Jenkins MD IMG XR PROCEDURES Final R esult [facility] * High Resolution Esophageal Manometric Study - (06/28/2024 6:56 AM CDT) Anatomical Region Laterality Modality Other us Yolette Jenkins MD GI LAB PROCEDURE ORDERABL ES Final Result from Last 3 Months Insurance MEDICARE [employer] MEDICARE RA[employer] [facility] MEDICARE RAILROAD [facility] Advance Directives For more information, please contact: [phone] * Full Code (Latest Code Status on File) Date Activated Date Inactivated Comments 07/08/2024 8:02 AM 07/08/2024 2:24 PM Care Teams Sack Repairer Relationship Specialty Start Date End Date Aliza Aviles MD [address] [place] [address] PCP - General Family Medicine 05/22/20 Referral, Self 05/22/20 William Naranjo MD Consulting Physician Medical Oncology 05/22/20
--- OUTSIDE RECORDS SUMMARY | 2024-08-03 16:04 | XMS_ITS | Clinical Summary ---
Author Organization [facility] [place] Address [address] [place] [address] Phone Care Team Providers Care Bronc Buster Name Role Phone Aliza Aviles MD Primary [...] patient Take 100 mcg by mouth daily longitudinal float operator. 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 Not on file Not on file Not on file Not on file Not on file Not on file Not on file Last Filed Vital Signs Vital Sign Reading Time Taken Comments Blood Pressure 128/84 04/02/2024 12:54 PM FERRYBOAT OPERATOR HELPER Pulse 87 03/08/2022 11:31 AM FERRYBOAT OPERATOR HELPER Temperature 36.5 C (97.7 F) 09/01/2019 11:48 AM CDT Respiratory Rate 14 06/02/2009 1:43 PM CDT Oxygen Saturation 96% 03/08/2022 11:31 AM FERRYBOAT OPERATOR HELPER Inhaled Oxygen Concentration - - Weight 70.8 kg (156 lb) 04/02/2024 12:54 PM FERRYBOAT OPERATOR HELPER Height 152.4 cm (5') 04/02/2024 12:54 PM FERRYBOAT OPERATOR HELPER Body Mass Index 30.47 04/02/2024 12:54 PM FERRYBOAT OPERATOR HELPER Plan of Treatment Upcoming Encounters Date Type Department Care Team (Late st Contact Info) Description 04/04/2025 12:00 PM FERRYBOAT OPERATOR HELPER [facility] [address] [place] [address] Svetlana Kaur, DIRECTOR OF INCOME TAX [address] [facility] [address] [place] [phone] 04/04/2025 12:45 PM FERRYBOAT OPERATOR HELPER Office Visit [facility] [place] [address] [facility] [address] [place] [address] Svetlana Kaur, DIRECTOR OF INCOME TAX [address] [facility] [address] [place] [address] Health Maintenance Due Date Last [...] ZOSTER VACCINE Completed 08/18/2018, 04/18, 02/18/2008 Insurance [facility] MEDICARE RAILROAD Care Teams Bronc Buster Relationship Specialty Start Date End Date Aliza Aviles MD [address] [place] [address] PCP - General Family Practice 08/05/18
--- OUTSIDE RECORDS SUMMARY | 2024-08-03 16:04 | XMS_ITS | Encounter Summary ---
Author Organization [facility] Address [address] [place] [address] Phone Care Team Providers Care Retail Delivery Driver Name Role Phone Aliza Aviles MD Primary Care Provider Referral, Self Unavailable Unavailable William Naranjo MD Unavailable [phone] Encounter Details Date Type Department Care Team (Late st Contact Info) Description 06/28/2024 Results Follow-Up [facility] Gastroenterology [address] [facility] 12th [place] [address] [place] [address] Yolette Jenkins MD [address] [place] [address] High Resolution Esophageal Manometric Study - Social History Tobacco Use Types Packs/Day Years Used Date Smoking Tobacco: Never Smokeless Tobacco: Never Comments Unknown Sex and Gender Information Value Date Recorded Sex Assigned at Not on file Legal Sex Female 10:34 PM CREATIVE SERVICES INTERN Gender Identity Not on file Sexual Orientation [...] on filedocumented in this encounter Care Teams Retail Delivery Driver Relationship Specialty Start Date End Date Aliza Aviles MD [address] [place] [address] PCP - General Family Medicine 05/22/20 Referral, Self 05/22/20 William Naranjo MD Consulting Physician Medical Oncology 05/22/20 documented as of this encounter
--- OUTSIDE RECORDS SUMMARY | 2024-08-03 16:04 | XMS_ITS | Encounter Summary ---
Author Organization [facility] Address [address] [place] [address] Phone Care Team Providers Care Customer Complaint Clerk Name Role Phone Aliza Aviles MD Primary Care Provider Referral, Self Unavailable Unavailable William Naranjo MD Unavailable [phone] Encounter Details Date Type Department Care Team (Late st Contact Info) Description 07/09/2024 Results Follow-Up [facility] Gastroenterology [address] [facility] 12th [place] [address] [place] [phone] Yolette Jenkins MD [address] [place] [address] Surgical pathology Social History Tobacco Use Types [...] on file Legal Sex Female 10:34 PM CONSULTING BUSINESS DEVELOPER Gender Identity Not on file Sexual Orientation [...] on filedocumented in this encounter Care Teams Customer Complaint Clerk Relationship Specialty Start Date End Date Aliza Aviles MD [address] [place] [address] PCP - General Family Medicine 05/22/20 Referral, Self 05/22/20 William Naranjo MD Consulting Physician Medical Oncology 05/22/20 documented as of this encounter
== END 2024-08-03 15:09 | disposition home or self-care (01) ==
PROVIDERS: PCP Family Medicine; Visit Provider Internal Medicine Critical Care Medicine
DX: I71.21 Aneurysm of the ascending aorta, without rupture (principal); R05.3 Chronic cough
CPT/HCPCS: 71250